=== PATIENT | female | born 1975 | race Caucasian/White ===

== ENCOUNTER 2017-08-13 20:41 | Observation (INO) ==
--- NOTE | 2017-08-13 21:00 | Emergency Department Note ---
Disposition Clinical Impression: Shortness of breath Chest pain Qualifiers: Chest pain type: unspecified Qualified Code(s): R07.9 - Chest pain, unspecified Disposition: Admitted As Inpatient Condition: Good Referrals: NONE,PCP [Primary Care Provider] - Forms: ED Satisfaction Letter Time of Disposition: 21:47 General Adult HPI - General Chief complaint: ED Chest Pain Stated complaint: chest pain Time Seen by Provider: 08/13/17 20:48 Source: patient Limitations: no limitations Nursing Notes Reviewed: Yes Vital Signs Reviewed: Yes - History of Present Illness HPI Narrative: Patient is a 41 old female the present emergency department with chest pain. She states that this is been ongoing and getting worse over the past 3 days. She describes the chest pain as pressure that radiates into her right jaw and the back of her right shoulder. She states that she has had associated shortness of breath, nausea but denies any diaphoresis. She states that she took a full dose aspirin today approximately 4 hours ago. She denies having any cardiac history or any events like this in the past. She states that nothing seems to make it better and it is worse with exertion. She rates her pain as a 3 out of 10. Patient denies ever having any cardiac catheterizations , stress test or echocardiograms done. Pain Scale: 4 - Related Data Home Medications Medication Instructions Recorded Confirmed Aspirin/Acetaminophen/Caffeine 1 each PO Q6H PRN 08/13/17 08/13/17 [Excedrin Migraine Caplet] Lisinopril [Zestril] 20 mg PO DAILY 08/13/17 08/13/17 hydroCHLOROthiazide 12.5 mg PO DAILY 08/13/17 08/13/17 [Hydrochlorothiazide] Allergies Allergy/AdvReac Type Severity Reaction Status Date / Time ibuprofen AdvReac Vomiting Verified 08/13/17 20:42 sumatriptan [From Imitrex] AdvReac Dizziness Verified 08/13/17 20:42 All systems ED: reviewed and negative except as stated. Cardiovascular: Reports: chest pain Respiratory: Reports: dyspnea Gastrointestinal: Reports: nausea Past Medical History - Past Medical History Medical history: Reports: hypertension Psychiatric history: Reports: no psych history - Social History Smoking Status: Current every day smoker Alcohol use: Reports: none Drug use: Reports: none Physical Exam - General Limitations: no limitations General appearance: alert, in no apparent distress - Head Head exam: atraumatic, normocephalic - Eye Eye exam: Present: normal appearance, EOMI - Neck Neck exam: Present: normal inspection, full ROM, trachea midline - Respiratory Respiratory exam: Present: other (Patient has coarse breath sounds bilaterally) - Cardiovascular Cardiovascular exam: Present: regular rate, normal rhythm, normal heart sounds, +S1, +S2 - Abdominal Exam Abdominal exam: Present: soft, Non-Tender, normal bowel sounds - Neurological Exam Neurological exam: Present: alert, oriented X3 - Psychiatric Psychiatric exam: Present: normal affect, normal mood - Skin Skin exam: Present: warm, dry, intact Course Vital Signs Temperature 97.6 F 08/13/17 20:42 Pulse Rate 90 08/13/17 20:42 Respiratory Rate 18 08/13/17 20:42 Blood Pressure 148/93 08/13/17 20:42 O2 Sat by Pulse Oximetry 98 08/13/17 20:42 Temperature 97.6 F 08/13/17 20:42 Pulse Rate 87 08/13/17 21:46 Respiratory Rate 16 08/13/17 21:46 Blood Pressure 115/87 08/13/17 21:46 O2 Sat by Pulse Oximetry 97 08/13/17 21:46 Oxygen Delivery Oxygen Delivery Room Air Medical Decision Making - MDM Narrative Medical decision making narrative: Due the patient presenting with chest pain we will obtain a CBC, BMP, troponin, chest x-ray and EKG to evaluate this patient for possible cardiac or pulmonary cause. Patient had an elevated white count of 18. Troponin was negative. Chest showed no acute cardiopulmonary process. EKG showed a sinus rhythm with no STEMI noted. Remainder of her laboratory testing was unremarkable. But due to the patient having substernal chest pain is radiating into her right shoulder and neck this is concerning for possible cardiac cause so we will admit the patient to the hospital for further evaluation and management. Patient reports that she had relief of her pain with 2 sublingual nitroglycerin. I have called and spoken with the hospitalist and they have accepted the patient to their service. The patient will be admitted to the hospital for further evaluation and management. - Medical Records Medical records reviewed: Yes I reviewed the patient's medical records. - Lab Data Lab results reviewed: Yes I reviewed the patient's lab results. Result diagrams: 08/13/17 21:04 08/13/17 21:04 Lab Results 08/13/17 08/13/1708/13/18 Range/Units 21:04 21:04 21:04 WBC 18.0 H (4.3-11.1) K/mcL RBC 5.22 H (3.82-4.97) M/mcL Hgb 15.4 (11.5-15.4) g/dL Hct 47.0 H (35.3-44.9) % MCV 90.0 (83.0-100.0) fL MCH 29.5 (28.0-33.3) pg MCHC 32.8 (31.6-35.5) g/dL RDW 13.9 (11.5-14.5) % Plt Count 411 H (140-400) K/mcL MPV 9.2 L (9.4-12.4) fL Immature Gran % 0.6 (0-4) % Seg Neutrophils % 58.7 % Lymphocytes % 32.8 % Monocytes % 6.4 % Eosinophils % 1.1 % Basophils % 0.4 % Neutrophils # 10.6 H (1.6-8.9) K/mcL Lymphocytes # 5.9 H (0.6-4.6) K/mcL Monocytes # 1.2 (0.0-1.3) K/mcL Eosinophils # 0.2 (0.0-0.6) K/mcL Basophils # 0.1 (0.0-0.2) K/mcL PT 12.3 H (9.4-12.1) Seconds INR 1.1 APTT 34.6 (26.0-36.0) Seconds Sodium (136-145) mEq/L Potassium (3.5-5.1) mEq/L Chloride (98-107) mEq/L Carbon Dioxide (23-29) mEq/L BUN (6-20) mg/dL Creatinine (0.60-1.20) mg/dL Est GFR ( Amer) (> 60) Est GFR (Non-Af Amer) (> 60) BUN/Creatinine Ratio (6-26) Glucose (70-105) mg/dL Calculated Osmolality (280-300) Calcium (8.6-10.3) mg/dL Troponin I (< 0.04) ng/mL B-Natriuretic Peptide 25 (Less than 100) pg/mL 01/31/18 01/31/18 Range/Units 21:04 21:04 WBC (4.3-11.1) K/mcL RBC (3.82-4.97) M/mcL Hgb (11.5-15.4) g/dL Hct (35.3-44.9) % MCV (83.0-100.0) fL MCH (28.0-33.3) pg MCHC (31.6-35.5) g/dL RDW (11.5-14.5) % Plt Count (140-400) K/mcL MPV (9.4-12.4) fL Immature Gran % (0-4) % Seg Neutrophils % % Lymphocytes % % Monocytes % % Eosinophils % % Basophils % % Neutrophils # (1.6-8.9) K/mcL Lymphocytes # (0.6-4.6) K/mcL Monocytes # (0.0-1.3) K/mcL Eosinophils # (0.0-0.6) K/mcL Basophils # (0.0-0.2) K/mcL PT (9.4-12.1) Seconds INR APTT (26.0-36.0) Seconds Sodium 136 (136-145) mEq/L Potassium 3.5 (3.5-5.1) mEq/L Chloride 104 (98-107) mEq/L Carbon Dioxide 26 (23-29) mEq/L BUN 11 (6-20) mg/dL Creatinine 0.70 (0.60-1.20) mg/dL Est GFR ( Amer) > 60 (> 60) Est GFR (Non-Af Amer) > 60 (> 60) BUN/Creatinine Ratio 16 (6-26) Glucose 114 H (70-105) mg/dL Calculated Osmolality 282 (280-300) Calcium 9.5 (8.6-10.3) mg/dL Troponin I < 0.03 (< 0.04) ng/mL B-Natriuretic Peptide (Less than 100) pg/mL - Radiology Data Radiology results reviewed: Yes I reviewed the patient's radiology results. Chest X-Ray 08/13/17 20:55 IMPRESSION: No acute cardiopulmonary process. D/ / 08/13/2017 21:37:34 Michelle Gresham MD / teetee Interpreting Provider: Michelle Gresham MD - EKG Data EKG #1 EKG attestation: Yes I reviewed and interpreted this EKG. EKG results narrative: Patient's EKG showed a sinus rhythm at a rate of 74 bpm, AL interval of 165, QRS duration of 82, QTC of 385.
--- NOTE | 2017-08-13 21:16 | Emergency Department Note ---
START Narrative - START START: I examined this patient and my medical decision-making was reviewed with the Resident Physician. I agree with the documented findings, disposition and treatment plan as described except to the extent set forth below. 41 year old female presents to the ED with complaints of chest pain with exertional dyspnea and near syncope and diaphoresis with walking. She has multiple risk factors and is a 1ppd smoker. She took aSA full dose at home and we will try to treat her chest pain with nitro. We iwll admit to medicine for CP r/o ACS due to clinical history.
[2017-08-13 21:18] LABS: Basophils # 0.1 K/mcL (0.0-0.2); Basophils % 0.4 %; Eosinophils # 0.2 K/mcL (0.0-0.6); Eosinophils % 1.1 %; Hemoglobin 15.4 g/dL (11.5-15.4); Immature Granulocytes % 0.6 % (0-4); Lymphocytes # 5.9 K/mcL (0.6-4.6); Lymphocytes % 32.8 %; Mean Corpuscular HGB Conc 32.8 g/dL (31.6-35.5); Mean Corpuscular Hemoglobin 29.5 pg (28.0-33.3); Mean Platelet Volume 9.2 fL (9.4-12.4); Monocytes # 1.2 K/mcL (0.0-1.3); Monocytes % 6.4 %; Neutrophils # 10.6 K/mcL (1.6-8.9); Platelet Count 411 K/mcL (140-400); Red Blood Count 5.22 M/mcL (3.82-4.97); Red Cell Distribution Width 13.9 % (11.5-14.5); Segmented Neutrophils % 58.7 %
[2017-08-13 21:21] LABS: INR 1.1; Prothrombin Time 12.3 Seconds (9.4-12.1)
[2017-08-13 21:23] LABS: Activated Partial Thrombo Time 34.6 Seconds (26.0-36.0)
[2017-08-13] MEDS: Nitroglycerin 0.4 MG TAB.SUBL SL PRN ×2 (21:28→21:47)
[2017-08-13 21:35] LABS: BUN/Creatinine Ratio 16 (6-26); Blood Urea Nitrogen 11 mg/dL (6-20); Calcium 9.5 mg/dL (8.6-10.3); Carbon Dioxide 26 mEq/L (23-29); Chloride 104 mEq/L (98-107); Glucose 114 mg/dL (70-105); Osmolality,Calculated 282 (280-300); Potassium 3.5 mEq/L (3.5-5.1); Sodium 136 mEq/L (136-145); eGFR For African Americans > 60 (> 60); eGFR For Non-African Americans > 60 (> 60)
[2017-08-13] MEDS ORDERED: Naloxone 0.4 MG/ML INJ IVP PRN (22:13)
[2017-08-13] MEDS ORDERED: Acetaminophen 325 MG TABLET PO PRN (22:13)
[2017-08-13] MEDS ORDERED: *HR* HYDROcodone/Acet 5/325 mg TABLET PO PRN (22:13)
[2017-08-13] MEDS ORDERED: Acetaminophen/Aspirin/Caffeine TABLET PO PRN (22:27)
--- NOTE | 2017-08-13 22:42 | Internal Med History&Physical ---
<Mauro Tabor - Last Filed: 08/13/17 23:45> Date of Encounter: 08/13/17 Time of Encounter: 22:00 Assessment and Plan (1) Chest pain Current visit: Yes Status: Acute Acute chest pain that began three days ago and presented as pressure and centralized chest with radiation to right jaw and bilateral shoulder blades. Patient denies previous occurrence, previous cardiac history, previous cardiac workup. Initial troponin < 0.03. Ultrasound 2. Echocardiogram ordered. Cardiac diet with nothing by mouth at midnight for scheduled a.m. nuclear pharm stress test. Continuous cardiac telemetry. Supplemental O2 and SPO2 monitoring when necessary. Aspirin now. Lipitor 20 mg by mouth now. SL nitroglycerin PRN. Will consider cardiology consult based on abnormal troponins and/or echocardiogram and stress test results. Pt. discussed w/Dr. Philippe who is in agreement w/plan of care. Pt. is high risk for cardiac event based on current chest pain for three days duration, hx, and risk factors of familial MIs, current HTN, and tobacco abuse. Observation. Qualifiers: Chest pain type: unspecified Qualified Code(s): R07.9 - Chest pain, unspecified (2) Shortness of breath Current visit: Yes Status: Acute Acute SOB and dyspnea accompanying chest pain. Pt. denies SOB during exam. Supplemental O2 with titration and SPO2 monitoring ordered PRN. (3) Unsteadiness on feet Current visit: Yes Status: Acute Acute on chronic unsteadiness w/ambulation. Falls/safety precautions, up with assist, and bathroom privileges w/assist only. PT/OT consults ordered to assess patient's ambulation strength, stability, and safety. Bilateral carotid Dopplers ordered. CT of the head/brain ordered w/o contrast. (4) HTN (hypertension) Current visit: Yes Status: Chronic Hx of chronic HTN. Monitor pt. and VS. Pt. reports she was taking 10 mg. lisinopril for HTN diastolic BP was >100 so she began taking 20 mg daily. Will continue patient's hydrochlorothiazide and lisinopril @ 20 mg unless pt. becomes hypotensive. Qualifiers: Hypertension type: essential hypertension Qualified Code(s): I10 - Essential (primary) hypertension (5) DVT prophylaxis Current visit: Yes Status: Acute Heparin 5,000 units SQ Q8 for DVT prophylaxis. Monitor pt. for signs of bleeding. Internal Medicine - H&P: HPI Chief complaint: Chest pain/SOB Admitted From: Emergency Dept Plans for Post Hospital Care: Home History of present illness: Ms. Khan is a 41 year old female with medical hx of HTN presents from the ED with chief complaint of chest pain that began three days ago and presented as centralized pressure in her chest with radiation to her right jaw and across her shoulder blades. Denies previous occurrence. Pt. also states that two weeks ago she began having dizzy spells with numbness in her right arm and leg that interfered w/her walking. Denies personal cardiac hx or issues, heart caths, echocardiograms, or stress tests but reports familial hx of [place] and CAD in grandparents and uncle. Pt. reports SOB, chest pain, and nausea but denies recent illness, fever, chills, diaphoresis, changes in vision, headache, palpitations, unusual bleeding, abdominal pain, diarrhea, constipation, weakness , fatigue, lightheadedness, pre-syncope, or syncope. Past Med Surg Social Fam HX - Past Medical History Source: patient, old records reviewed, obtained from family Medical history: hypertension Psychiatric history: no psych history - Social History Smoking Status: Current every day smoker Packs per day: 1 PPD Alcohol use: none Drug use: none Current living situation: Home, With Family Activity Level: Independent ambulation, Very active Recent Out of Country Travel Within the Last 8 Weeks: No Exposure or Possible Exposure to Illness During Travel: No - Family History Father History Unknown: Yes Race: Family Member Ethnicity: Non- Mother Race: Family Member Ethnicity: Non- Hx Family Cardiac Disorders: Yes (HTN) Grandmother Race: Family Member Ethnicity: Non- Living Status: Age at : 69 Cause of : [place] Hx Family Cardiac Disorders: Yes ([place], CAD) Grandfather Race: Family Member Ethnicity: Non- Living Status: Age at : 69 Cause of : [place] Hx Family Cardiac Disorders: Yes ([place], CAD) Internal Medicine - H&P: Meds Aspirin/Acetaminophen/Caffeine [Excedrin Migraine Caplet] 1 each PO Q6H PRN [History] Lisinopril [Zestril] 20 mg PO DAILY 08/13/17 [History] hydroCHLOROthiazide [Hydrochlorothiazide] 12.5 mg PO DAILY 08/13/17 [History] 3 Allergy/AdvReac Type Severity Reaction Status Date / Time ibuprofen AdvReac Vomiting Verified 08/13/17 20:42 sumatriptan [From Imitrex] AdvReac Dizziness Verified 08/13/17 20:42 All Systems PM: A 10-system review of systems was performed and is negative for pertinent findings except as documented above in the HPI. - Constitutional Constitutional: no chills, no fever(s), no night sweats - EENT Eyes: no change in vision, no discharge, no pain, no photophobia Ears: no ear discharge, no ear pain, no tinnitus Nose, mouth and throat: no dysphagia, no nasal discharge, no neck pain, no sore throat - Breasts Breasts: as per HPI - Cardiovascular Cardiovascular ROS IM: as per HPI, chest pain, dyspnea, dyspnea on exertion, no diaphoresis, no lightheadedness, no palpitations, no syncope - Respiratory Respiratory: as per HPI, dyspnea, dyspnea on exertion, no cough, no wheezing, no excessive phlegm production - Gastrointestinal Gastrointestinal: no abdominal pain, no diarrhea, no hematemesis, no hematochezia, no melena, no nausea, no vomiting - Genitourinary Genitourinary: no change in urinary stream, no dysuria, no flank pain, no hematuria Menstruation: as per HPI - Musculoskeletal Musculoskeletal ROS IM: no numbness, no tingling - Integumentary Integumentary IM: no rash, no unusual bruising - Neurological Neurological ROS: as per HPI, disequilibrium, numbness (Two weeks ago in RUE and RLE), tingling (Two weeks ago in RUE and RLE), no confusion, no convulsions , no focal weakness, no tremor(s) - Psychiatric Psychiatric: as per HPI - Endocrine Endocrine IM: as per HPI - Hematologic/Lymphatic Hematologic/Lymphatic: no easy bruising - Allergic/Immunologic Allergic/Immunologic: as per HPI - Constitutional Vitals: Temp Pulse Resp BP Pulse Ox 97.6 F 87 18 114/58 97 08/13/17 20:42 08/13/17 21:46 08/13/17 22:13 08/13/17 22:13 08/13/17 21:46 General appearance: Present: cooperative, A&O X 3, morbidly obese, pleasant, no acute distress, answers questions appropriately - Head Head exam: Present: atraumatic, normocephalic - Eye Eye exam: Present: PERRL, conjuntiva pink, sclera anicteric Pupils: Present: PERRL - ENT ENT exam: Present: normal exam - Neck Neck exam general surgery: Present: normal inspection - Respiratory Respiratory exam: Present: CTAB. Absent: accessory muscle use, rales, rhonchi, wheezes - Cardiovascular Cardiovascular exam: Present: irregular rhythm, +S1, +S2. Absent: diastolic murmur, gallop, rubs, systolic murmur - GI/Abdominal GI/Abdominal exam: Present: normal bowel sounds, soft, no peritoneal signs. Absent: distended, tenderness - Rectal Rectal exam: Present: deferred - Additional comments: exam deferred. - Extremities Exam Extremities exam: Present: warm, radial pulses palpable and symmetrical. Absent : calf tenderness, cyanotic, pedal edema - Back Exam Back exam: Present: normal inspection - Neurological Exam Neurological exam: Present: CN II-XII intact, oriented X3, no focal deficits. Absent: pronater drift, facial droop, speech deficit - Psychiatric Psychiatric exam: Present: normal affect, normal mood - Skin Skin exam: Present: dry, intact Internal Med - H&P Results - Labs CBC & Chem 7: 08/13/17 21:04 08/13/17 21:04 - EKG Data EKG shows normal: sinus rhythm - EKG Data Prior EKG available for review: no EKG comments: 08/13/17 23:27 EKG dated 08/13/17 shows sinus rhythm with sinus arrhythmia, inferior myocardial infarction of indeterminate age. - Diagnostic Studies Chest x-ray Additional comments: Impressions Chest X-Ray 08/13/17 20:55 IMPRESSION: No acute cardiopulmonary process. D/ / 08/13/2017 21:37:34 Michelle Gresham MD / teetee Interpreting Provider: Michelle Gresham MD <Nahid Philippe - Last Filed: 08/14/17 00:59> Date of Encounter: 08/14/17 Assessment and Plan (1) TIA (transient ischemic attack) Current visit: Yes Status: Acute Pt report right side numbness which happened about one month ago, resolved by itself, consider TIA. - CT head negative. - Cont cardiac monitoring r/o occult A Fib - Echo and duplex carotid placed. - Cont ASA and atorvastatin for secondary prevention. Qualifiers: Transient cerebral ischemia type: carotid artery syndrome (hemispheric) Qualified Code(s): G45.1 - Carotid artery syndrome (hemispheric) Internal Medicine - H&P: HPI History of present illness: Ms. Khan is a 41 year old female All Systems PM: A 10-system review of systems was performed and is negative for pertinent findings except as documented above in the HPI. - Constitutional Vitals: Temp Pulse Resp BP Pulse Ox 97.9 F 76 16 100/68 97 08/13/17 22:53 08/13/17 22:53 08/13/17 22:53 08/13/17 22:53 08/13/17 22:53 Internal Med - H&P Results - Labs CBC & Chem 7: 08/13/17 21:04 08/13/17 21:04 - Impressions ITS Impressions Head CT 08/13/17 23:44 IMPRESSION: No acute intracranial abnormality. D/ / Vito Reza / Vito Reza Interpreting Provider: Vito Reza - Attending Attestation I have seen and examined the patient independently. I have discussed with [employer] COMPUTER EXAMINER Mr Tabor regarding the management plan, agreed with the documentation except the change I made above regarding TIA.
[2017-08-14] MEDS: Aspirin Enteric Coated 81 MG Tablet PO SCH ×2 (00:01→10:45)
[2017-08-14] MEDS: Nicotine 14 MG PATCH.TD24 TD SCH ×2 (00:01→10:45)
[2017-08-14 03:14] LABS: Basophils # 0.1 K/mcL (0.0-0.2); Basophils % 0.4 %; Eosinophils # 0.2 K/mcL (0.0-0.6); Eosinophils % 1.3 %; Hematocrit 42.3 % (35.3-44.9); Hemoglobin 14.1 g/dL (11.5-15.4); Immature Granulocytes % 0.4 % (0-4); Lymphocytes # 5.2 K/mcL (0.6-4.6); Lymphocytes % 29.2 %; Mean Corpuscular HGB Conc 33.3 g/dL (31.6-35.5); Mean Corpuscular Hemoglobin 29.4 pg (28.0-33.3); Mean Corpuscular Volume 88.1 fL (83.0-100.0); Mean Platelet Volume 9.5 fL (9.4-12.4); Monocytes # 1.3 K/mcL (0.0-1.3); Monocytes % 7.4 %; Platelet Count 368 K/mcL (140-400); Segmented Neutrophils % 61.3 %
[2017-08-14 03:40] LABS: Alanine Aminotransferase 11 Units/L (7-52); Albumin 3.8 g/dL (3.5-5.7); Albumin/Globulin Ratio 1.2 (1.1-2.2); Alkaline Phosphatase 72 Units/L (34-104); Aspartate Amino Transferase 11 Units/L (13-39); BUN/Creatinine Ratio 18 (6-26); Bilirubin,Total 0.5 mg/dL (0.3-1.0); Blood Urea Nitrogen 12 mg/dL (6-20); Calcium 9.2 mg/dL (8.6-10.3); Carbon Dioxide 23 mEq/L (23-29); Chloride 105 mEq/L (98-107); Chol/HDL Ratio 4.2 (0-4.9); Cholesterol 157 mg/dL (< 200); Globulin 3.1 g/dL (2.4-3.5); Glucose 102 mg/dL (70-105); HDL Cholesterol 37 mg/dL (40-59); LDL Cholesterol,Calculated 103 mg/dL (0-99); Magnesium 1.9 mg/dL (1.6-2.6); Osmolality,Calculated 284 (280-300); Potassium 3.9 mEq/L (3.5-5.1); Sodium 137 mEq/L (136-145); Total Protein 6.9 g/dL (6.4-8.9); Triglycerides 84 mg/dL (< 150); eGFR For African Americans > 60 (> 60); eGFR For Non-African Americans > 60 (> 60)
[2017-08-14 03:47] LABS: Hemoglobin A1C 5.2 %
[2017-08-14] MEDS: *HR* Heparin 5,000 UNIT/ML VIAL SQ SCH ×3 (05:29→20:21)
[2017-08-14] MEDS ORDERED: *HR* Enoxaparin 40 MG/0.4 ML SYRINGE SQ SCH (06:00)
[2017-08-14] MEDS ORDERED: Regadenoson 0.4 MG/5 ML SYRINGE IVP ONE (06:48)
[2017-08-14] MEDS: Lisinopril 20 MG TABLET PO SCH (10:44)
[2017-08-14] MEDS: hydroCHLOROthiazide 25 MG TABLET PO SCH (10:44)
--- NOTE | 2017-08-14 13:48 | Internal Med Progress Note ---
Date of Encounter: 08/14/17 Time of Encounter: 10:35 - Assessment and plan (1) Chest pain Current Visit: Yes Status: Acute Assessment and plan: Patient reports 3 day history of chest pain/pressure. It is substernal with radiation to right jaw and bilateral shoulder blades. Patient has no prior history of NH and denies chest pain in the past. Troponins are negative 3. Patient's lipid panel is within normal limits, A1c is 5.2%. Chest x-ray is negative. Echocardiogram showed preserved EF of 60% and no significant valvular dysfunction. Patient is a 2 day stress test Continue telemetry Aspirin and nitroglycerin for chest pain Stress test completed tomorrow Continue aspirin and statin. Qualifiers: Chest pain type: unspecified Qualified Code(s): R07.9 - Chest pain, unspecified (2) DVT prophylaxis Current Visit: Yes Status: Acute Assessment and plan: Heparin subcutaneous daily. (3) Numbness and tingling Current Visit: Yes Status: Chronic Assessment and plan: Chronic. Patient reports years long history of frequent unsteadiness on her feet accompanied by bilateral lower extremity numbness and tingling. Patient states that she has never seen a physician for workup. B12 and folate were added for morning labs. Patient will need to follow primary care and/or neurology for possible EMG and continued workup. (4) Shortness of breath Current Visit: Yes Status: Resolved Assessment and plan: Patient denies shortness of breath. Lungs are clear. She is not requiring supplemental oxygen. Continue to monitor. (5) Unsteadiness on feet Current Visit: Yes Status: Chronic Assessment and plan: Patient reports that she has been unsteady on her feet for years. She denies falling, but states multiple times a year, her legs give out that she catches herself. She also reports associated bilateral lower extremity numbness and tingling. She will need to follow up with primary care and /or neurology for EMG and/or MRI for further testing and evaluation. (6) HTN (hypertension) Current Visit: Yes Status: Chronic Assessment and plan: Blood pressure is well controlled. Patient states that she has episodes of hypertension and feels that her medication is not controlling hypertension adequately. She has one hypertensive reading on arrival to the emergency department last night. All others are within normal limits. We will continue to monitor and adjust medications if needed. Qualifiers: Hypertension type: essential hypertension Qualified Code(s): I10 - Essential (primary) hypertension - Time Spent With Patient less than 15 minutes - Subjective Interval history: Pt was seen at bedside at 1035 after she returned from day 1 of her stress test. She is alert and awake and denies chest pain currently. She denies SOB, n/ v, abd pain, dizziness, or headache. Patient reports lengthy, years long history of unsteadiness on her feet, bilateral lower extremity numbness and tingling. She denies any dizziness or lightheaded with it, she states that she does not actually fall but that her legs give out and she catches himself. She has not followed up for this. She denies any vision changes or headaches. B12 and folate have been ordered for morning and patient will follow up outpatient with primary care and/or neurology for follow-up. - Constitutional Vitals: Temp Pulse Resp BP Pulse Ox 98.1 F 72 16 126/80 96 08/14/17 11:43 08/14/17 11:43 08/14/17 11:43 08/14/17 11:43 08/14/17 11:43 General appearance: Present: cooperative, A&O X 3, morbidly obese, pleasant, no acute distress, answers questions appropriately - Head Head exam: Present: atraumatic, normal inspection, normocephalic - Eye Eye exam: Present: normal appearance, conjuntiva pink, sclera anicteric - Neck Neck exam general surgery: Present: normal inspection, supple, trachea midline. Absent: lymphadenopathy, tenderness - Respiratory Respiratory exam: Present: CTAB, prolonged expiratory phase. Absent: accessory muscle use, chest wall tenderness, rales, rhonchi, wheezes - Cardiovascular Cardiovascular exam: Present: RRR, +S1, +S2. Absent: diastolic murmur, gallop, rubs, systolic murmur - GI/Abdominal GI/Abdominal exam: Present: normal bowel sounds, soft, no peritoneal signs. Absent: distended, hepatomegaly, tenderness - Extremities Exam Extremities exam: Present: normal capillary refill, normal inspection, warm, radial pulses palpable and symmetrical. Absent: calf tenderness, cyanotic, pedal edema, tenderness - Neurological Exam Neurological exam: Present: alert, oriented X3, no focal deficits. Absent: facial droop, speech deficit - Skin Skin exam: Present: dry, intact, normal color, warm. Absent: rash Internal Medicine: Result - Labs CBC & Chem 7: 08/14/17 02:57 08/14/17 02:57 Labs: Short CBC 08/14/17 Range/Units 02:57 WBC 17.9 H (4.3-11.1) K/mcL Hgb 14.1 (11.5-15.4) g/dL Hct 42.3 (35.3-44.9) % Plt Count 368 (140-400) K/mcL Neutrophils # 11.0 H (1.6-8.9) K/mcL BMP 08/14/17 02:57 Sodium 137 Potassium 3.9 Chloride 105 Carbon Dioxide 23 BUN 12 Creatinine 0.65 Glucose 102 Calcium 9.2 Cardiac Enzymes 08/14/17 Range/Units 02:57 Troponin I < 0.03 (< 0.04) ng/mL Liver Function 08/14/17 Range/Units 02:57 Total Bilirubin 0.5 (0.3-1.0) mg/dL AST 11 L (13-39) Units/L ALT 11 (7-52) Units/L Alkaline Phosphatase 72 (34-104) Units/L Albumin 3.8 (3.5-5.7) g/dL - ABG Interpretation ABG results: PT/INR, D-dimer PT 12.3 Seconds (9.4-12.1) H 08/13/17 21:04 - Impressions Impressions Head CT 08/13/17 23:44 IMPRESSION: No acute intracranial abnormality. D/ / Vito Reza / Vito Reza Interpreting Provider: Vito Reza Echocardiogram 08/14/17 22:24 Impressions: LVEF 60%. Normal left ventricular diastolic function. Normal right ventricular structure and function. No significant valvular dysfunction. No pulmonary hypertension. Left Ventricular Wall Motion: Rest Echo Findings All wall segments showed normal motion. Findings: Study Quality * Technically adequate exam. ECG Findings * Normal sinus rhythm. Left Ventricle * LVEF 60%. * Normal LV chamber size, wall thickness and function. * Normal left ventricular diastolic function. Right Ventricle * Normal right ventricular structure and function. Left Atrium * Normal left atrial size. Right Atrium * Normal right atrial size. Mitral Valve * Normal mitral valve structure. * No mitral regurgitation. * No mitral stenosis. Aortic Valve * No aortic regurgitation. * Aortic valve not well visualized. * No aortic stenosis. Tricuspid Valve * Tricuspid valve not well visualized. * No tricuspid regurgitation. Pulmonic Valve * Pulmonic valve is not well visualized. * No pulmonic stenosis. * No pulmonic regurgitation. Pulmonary Artery * Pulmonary artery not well visualized. Aorta * Normally sized aortic root. * Ascending aorta is not optimally visualized. Pericardium * There is no pericardial effusion present. Interatrial Septum * No evidence of PFO by color Doppler. IVC * The IVC is not well evaluated. Consult Discharge Plan - Plan Referrals: NONE,PCP [Primary Care Provider] -
[2017-08-15] MEDS: *HR* Heparin 5,000 UNIT/ML VIAL SQ SCH ×3 (04:13→21:04)
[2017-08-15 06:30] LABS: Basophils # 0.1 K/mcL (0.0-0.2); Basophils % 0.5 %; Eosinophils # 0.3 K/mcL (0.0-0.6); Eosinophils % 1.7 %; Hematocrit 47.1 % (35.3-44.9); Hemoglobin 15.1 g/dL (11.5-15.4); Immature Granulocytes % 0.6 % (0-4); Lymphocytes # 5.1 K/mcL (0.6-4.6); Lymphocytes % 30.6 %; Mean Corpuscular HGB Conc 32.1 g/dL (31.6-35.5); Mean Corpuscular Volume 90.6 fL (83.0-100.0); Mean Platelet Volume 9.6 fL (9.4-12.4); Monocytes # 1.1 K/mcL (0.0-1.3); Monocytes % 6.6 %; Neutrophils # 9.9 K/mcL (1.6-8.9); Platelet Count 379 K/mcL (140-400)
[2017-08-15 06:59] LABS: Alanine Aminotransferase 11 Units/L (7-52); Albumin/Globulin Ratio 1.2 (1.1-2.2); Alkaline Phosphatase 75 Units/L (34-104); Aspartate Amino Transferase 11 Units/L (13-39); BUN/Creatinine Ratio 21 (6-26); Bilirubin,Total 0.7 mg/dL (0.3-1.0); Blood Urea Nitrogen 15 mg/dL (6-20); Calcium 9.5 mg/dL (8.6-10.3); Carbon Dioxide 25 mEq/L (23-29); Chloride 103 mEq/L (98-107); Globulin 3.3 g/dL (2.4-3.5); Glucose 93 mg/dL (70-105); Osmolality,Calculated 283 (280-300); Sodium 136 mEq/L (136-145); Total Protein 7.3 g/dL (6.4-8.9); eGFR For African Americans > 60 (> 60); eGFR For Non-African Americans > 60 (> 60)
[2017-08-15 07:06] LABS: Folate 9.5 ng/mL (3.0-16.0)
[2017-08-15] MEDS: hydroCHLOROthiazide 25 MG TABLET PO SCH (09:02)
[2017-08-15] MEDS: Nicotine 14 MG PATCH.TD24 TD SCH (09:03)
[2017-08-15] MEDS: Lisinopril 20 MG TABLET PO SCH (09:03)
[2017-08-15] MEDS: Aspirin Enteric Coated 81 MG Tablet PO SCH (09:03)
[2017-08-15 10:26] LABS: Bilirubin,Urine Negative (Negative); Blood,Urine Negative (Negative); Clarity,Urine Cloudy (Clear); Color,Urine Yellow (Yellow); Glucose,Urine (UA) Normal (Normal); Ketones,Urine Negative (Negative); Leukocyte Esterase,Urine Negative (Negative); Nitrite,Urine Negative (Negative); Protein,Urine Negative (Neg-Trace); Specific Gravity,Urine 1.016 (1.010-1.025); Urobilinogen,Urine Normal (Normal)
[2017-08-15 10:28] LABS: Bacteria,Urine None Seen per hpf (None-Few); Hyaline Casts,Urine None Seen per lpf (None-Few); RBC,Urine 0-3 per hpf (0-3); Squamous Epithelial Cell,Urine Many per lpf (None-Few); WBC,Urine 0-3 per hpf (0-3)
--- NOTE | 2017-08-15 12:18 | Cardiology Consult Note ---
Date of Encounter: 08/15/17 Time of Encounter: 12:00 Assessment and Plan (1) Abnormal stress test Current Visit: Yes Status: Acute Patient presented with atypical/typical chest pain symptoms. Troponin negative. No acute ECG changes. Risk factors for CAD: obesity, HTN, HLD, and tobacco use. TTE 08/14/17: LVEF 60%, normal wall motion 2day nuclear stress 08/14/17: small, mild apical lateral perfusion defect likely artifact however ischemia cannot be ruled out, gated EF 60% Discussed mgmt options, medical mgmt vs. LHC, patient prefers medical management which is reasonable given low risk findings. Agree with addition of statin and asa. Will add betablocker. Recommend prn NTG tabs upon discharge. Follow-up with [facility] in 4-6 weeks after trial of medical therapy. If continues to have symptoms can consider LHC. (2) Tobacco abuse counseling Current Visit: Yes Status: Acute Smoking cessation encouraged. (3) HTN (hypertension) Current Visit: Yes Status: Chronic Poorly controlled as outpatient. Remains elevated, will add betablocker. Qualifiers: Qualified Code(s): I10 - Essential (primary) hypertension Discussion w patient/family: The assessment and plan as outlined above was discussed with the patient and/or family members who expressed understanding and agreement. All questions were answered. Thank you for involving us in the care of your patient. Please call with any questions. The patient will be discussed and reviewed with Dr. Emeka Brower; changes to be made accordingly. History of Present Illness Consult date: 08/15/17 Requesting physician: Louisa Mak Consult reason: Abnormal stress test Chief complaint: Chest pain History of present illness: Ms. Khan is a 41 year old female with PMHx significant for tobacco use and HTN who presented to the ED with complaints of chest pressure. Pressure has been on and off for the past 2-3 days. Discomfort radiates to left neck, lasts minutes at a time. Pain is not related to exertion or activity. Associated symptoms include poorly controlled BP for the past 2 weeks, pt notices symptoms are worse with elevated BP's. Initial troponin was negative, no acute ST/T wave abnormalities noted per ECG. Cardiology consulted today for abnormal stress test. Past Med Surg Social Fam HX - Past Medical History Attestation: Yes The following information was validated with the patient. Source: patient Medical history: hypertension Psychiatric history: no psych history - Past Surgical History Surgical History: - Social History Smoking Status: Current every day smoker Packs per day: 1 PPD Alcohol use: none Drug use: none - Family History Father History Unknown: Yes Race: Family Member Ethnicity: Non- Mother Race: Family Member Ethnicity: Non- Hx Family Cardiac Disorders: Yes (HTN) Grandmother Race: Family Member Ethnicity: Non- Living Status: Age at : 69 Cause of : [place] Hx Family Cardiac Disorders: Yes ([place], CAD) Grandfather Race: Family Member Ethnicity: Non- Living Status: Age at : 69 Cause of : [place] Hx Family Cardiac Disorders: Yes ([place], CAD) Medications and Allergies Aspirin/Acetaminophen/Caffeine [Excedrin Migraine Caplet] 1 each PO Q6H PRN [History] hydroCHLOROthiazide [Hydrochlorothiazide] 12.5 mg PO DAILY 08/13/17 [History] Aspirin Enteric Coated [Aspirin EC] 81 mg PO DAILY #30 tablet. 08/15/17 [Rx] Atorvastatin [Lipitor] 10 mg PO HS #30 tablet 08/15/17 [Rx] Lisinopril [Zestril] 20 mg PO DAILY #30 tablet 08/15/17 [Rx] Metoprolol [Lopressor] 25 mg PO BID #60 tablet 08/15/17 [Rx] Nicotine Patch [Nicoderm] 14 mg TD DAILY #28 patch.td24 08/15/17 [Rx] 3 Allergy/AdvReac Type Severity Reaction Status Date / Time ibuprofen AdvReac Vomiting Verified 08/13/17 20:42 sumatriptan [From Imitrex] AdvReac Dizziness Verified 08/13/17 20:42 All Systems Review: A 10-system review of systems was performed and is negative for pertinent findings except as documented above in the HPI. - Cardiovascular Cardiovascular: as per HPI Physical Examination Vital Signs, Last 4 Hours Temp Pulse Resp BP Pulse Ox 08/15/17 11:52 99.1 F 94 18 150/96 97 General: Conversant, No Apparent Distress, Other (obese) HEENT: Atraumatic, Normocephaly, Mucus Membranes Moist Neck: No JVD, Normal carotid pulses Cardiac: Reg Rate and Rhythm, Normal S1 and S2, No Murmur Lungs: Normal Breath Sounds, No Wheeze, Rales, Rhonchi Neuro: Alert and responsive, No focal deficits noted Abdomen: Soft, Non-Tender Skin: No rashes noted on visualized skin Musculoskeletal: No Chest Wall Tenderness Extremities: No Clubbing, No Cyanosis, No Edema, Normal Pulses Results 08/15/17 05:35 08/15/17 05:35 Lab Results 08/15/17 08/15/17 05:35 05:35 WBC 16.6 H Hgb 15.1 Hct 47.1 H Plt Count 379 Sodium 136 Potassium 4.0 Chloride 103 Carbon Dioxide 25 BUN 15 Creatinine 0.70 Glucose 93 Calcium 9.5 Total Bilirubin 0.7 AST 11 L ALT 11 Alkaline Phosphatase 75 - Imaging and Cardiology Echo: report reviewed Cardiac cath: report reviewed Other Results: 12 hour tele: avg HR=75 SR. No significant event noted. - EKG Interpretation EKG results cardiology: personally reviewed Consult Discharge Plan - Plan Referrals: NONE,PCP [Primary Care Provider] - Prescriptions: Aspirin Enteric Coated [Aspirin EC] 81 mg PO DAILY #30 tablet. Atorvastatin [Lipitor] 10 mg PO HS #30 tablet Lisinopril [Zestril] 20 mg PO DAILY #30 tablet Metoprolol [Lopressor] 25 mg PO BID #60 tablet Nicotine Patch [Nicoderm] 14 mg TD DAILY #28 patch.td24
--- NOTE | 2017-08-15 12:50 | Discharge Summary ---
Date of Encounter: 08/15/17 Time of Encounter: 09:35 - Discharge Diagnosis (1) Chest pain Priority: Primary Status: Acute Comments: Patient reports 3 day history of chest pain/pressure prior to admission, none today. It is substernal with radiation to right jaw and bilateral shoulder blades. Patient has no prior history of SD and denies chest pain in the past. Troponins are negative 3. Patient's lipid panel is within normal limits, A1c is 5.2%. Chest x-ray is negative. Echocardiogram showed preserved EF of 60% and no significant valvular dysfunction. Stress with a gated EF of 60% with a small sized, mild intensity, reversible apical lateral defect, although it was suspicious for artifact, a small area of ischemia could not be excluded. Patient was evaluated by cardiology. Will follow up in the clinic and optimize medical management. She will continue aspirin, statin, beta ly. Patient continues to deny chest pain. We discussed risk factor modification including heart healthy diet, exercise, smoking cessation. We will send patient home with prescription for nicotine patches. Qualifiers: Chest pain type: unspecified Qualified Code(s): R07.9 - Chest pain, unspecified (2) DVT prophylaxis Priority: Secondary Status: Acute Comments: Heparin subcutaneous 3 times a day. Patient is also ambulatory. (3) Numbness and tingling Priority: Secondary Status: Chronic Comments: Patient reports chronic numbness and tingling to bilateral lower extremities. There is equally distributed. She also states at times this causes her to have lower extremity weakness. Unclear etiology at this time. Patient's A1c is within normal limits, she denies any chronic back pain or injury, no acute injury. She denies loss of bowel or bladder. Nash is within normal limits, B12 is mildly decreased at 193. Will supplement with oral B12 at discharge. Patient will need to follow up with primary care for continued evaluation and possible EMG. (4) Shortness of breath Priority: Secondary Status: Resolved Comments: Resolved. Patient denies any shortness of breath. Her lungs are clear and diminished throughout. No supplemental oxygen as required. She is in no distress. (5) Unsteadiness on feet Priority: Secondary Status: Chronic Comments: Plan as above. (6) HTN (hypertension) Priority: Secondary Status: Chronic Comments: Chronic. Continue home medications. Qualifiers: Hypertension type: essential hypertension Qualified Code(s): I10 - Essential (primary) hypertension - Discharge Medications Prescriptions: Aspirin Enteric Coated [Aspirin EC] 81 mg PO DAILY #30 tablet. Atorvastatin [Lipitor] 10 mg PO HS #30 tablet Lisinopril [Zestril] 20 mg PO DAILY #30 tablet Metoprolol [Lopressor] 25 mg PO BID #60 tablet Nicotine Patch [Nicoderm] 14 mg TD DAILY #28 patch.td24 Home Medications: Aspirin/Acetaminophen/Caffeine [Excedrin Migraine Caplet] 1 each PO Q6H PRN [History] hydroCHLOROthiazide [Hydrochlorothiazide] 12.5 mg PO DAILY 08/13/17 [History] Aspirin Enteric Coated [Aspirin EC] 81 mg PO DAILY #30 tablet. 08/15/17 [Rx] Atorvastatin [Lipitor] 10 mg PO HS #30 tablet 08/15/17 [Rx] Lisinopril [Zestril] 20 mg PO DAILY #30 tablet 08/15/17 [Rx] Metoprolol [Lopressor] 25 mg PO BID #60 tablet 08/15/17 [Rx] Nicotine Patch [Nicoderm] 14 mg TD DAILY #28 patch.td24 08/15/17 [Rx] Allergies/Adverse Reactions: 3 Allergy/AdvReac Type Severity Reaction Status Date / Time ibuprofen AdvReac Vomiting Verified 08/13/17 20:42 sumatriptan [From Imitrex] AdvReac Dizziness Verified 08/13/17 20:42 Procedures/tests Complete & Pending: Procedures Performed prior 72 hours Category Date Time Status CT head/brain wo con [CT] Routine Cat Scan 08/13/17 23:44 Completed NM amira perf SPECT multi [NM] Routine Exams 08/14/17 08:00 Taken EV carotid duplex imaging BI Routine Y 08/14/17 23:22 Completed EV echocardiogram Routine Y 08/14/17 22:24 Completed SP pharm nuclear stress Routine Y 08/14/17 11:00 Completed Date of admission: 08/13/17 21:57 Primary care physician: PCP NONE Consults: 08/13/17 22:23 Consult to Occupational Therapy [CONS] Routine Comment: Evaluate, develop and implement POC Reason for Consult: Patient reports unsteadiness on her feet that is chronic. Please assess patient for ambulation strength, stability, safety, and possible home assistive needs for post-discharge planning. Consult to Wrapper Stemmer Hand [CONS] Routine Reason for SW Consult: Please assess patient for possible home needs for post -discharge planning 08/13/17 22:24 Consult to Physical Therapy [CONS] Routine Comment: Evaluate, develop and implement POC Reason for Consult: Patient reports unsteadiness on her feet that is chronic. Please assess patient for ambulation strength, stability, safety, and possible home assistive needs for post-discharge planning. 08/15/17 11:20 Consult to Cardiology [CONS] Routine Comment: Consulting Provider: [facility] [place] Reason for Consult: Possible area of ischemia on stress. Time Notified: 11:20 Call Completed: Yes Discharging clinician: Louisa Mak Anticipated date of discharge: 08/15/17 - Patient Status Disposition: Home, Self-Care Condition: Good Functional capacity at discharge: independent ambulation Overall status at discharge: patient is back to baseline - Discharge Instructions Follow Up With: NONE,PCP [Primary Care Provider] - Additional Instructions: Please follow up with your PCP in the next 7-10 days for a recheck and to monitor your labs. Take your medications as directed. Resume your normal home medications and activities as tolerated. Try to increase your activity level and eat a heart healthy diet Stop smoking!! Return to the ER as needed for any other problems or concerns, or if your symptoms return or worsen. - Diet and Activity Activity: resume usual activities as tolerated Diet: low fat, low cholesterol, low salt diet Hospital course: Ms. Khan is a 41 year old female with prior medical history of hypertension, TIA, smoking. She was admitted through the emergency department for chest pain. She had a positive stress test that will be medically managed and she will follow up with cardiology in the office. Her echocardiogram showed preserved ejection fraction and no significant valvular dysfunction. Troponins are negative. EKG was normal sinus rhythm without any ST changes. She denied chest pain throughout the visit. Physical exam was unremarkable. Patient and I discussed lifestyle modifications including smoking cessation, exercise, heart healthy diet. Patient is going to be sent home with prescriptions for aspirin, statin, beta ly, nicotine patches. She will also continue her Lipitor at 20 mg. Her vital signs are stable and she is appropriate for discharge. Time spent discussing smoking cessation with patient: 3 to 10 minutes - Time Spent with Patient Total time spent providing and/or coordinating discharge services: Less than 30 minutes - Constitutional Vitals: Temp Pulse Resp BP Pulse Ox 99.1 F 94 18 150/96 97 08/15/17 11:52 08/15/17 11:52 08/15/17 11:52 08/15/17 11:52 08/15/17 11:52 General appearance: Present: cooperative, A&O X 3, pleasant, no acute distress, obese, answers questions appropriately - Head Head exam: Present: atraumatic, normal inspection, normocephalic - Eye Eye exam: Present: normal appearance, conjuntiva pink, sclera anicteric - Neck Neck exam general surgery: Present: supple, trachea midline. Absent: lymphadenopathy, tenderness - Respiratory Respiratory exam: Present: CTAB. Absent: accessory muscle use, chest wall tenderness, rales, respiratory distress, rhonchi, wheezes - Cardiovascular Cardiovascular exam: Present: RRR, +S1, +S2. Absent: diastolic murmur, gallop, rubs, systolic murmur - GI/Abdominal GI/Abdominal exam: Present: normal bowel sounds, soft, no peritoneal signs. Absent: distended, hepatomegaly, tenderness - Extremities Exam Extremities exam: Present: normal capillary refill, normal inspection, warm, radial pulses palpable and symmetrical. Absent: calf tenderness, cyanotic, pedal edema, tenderness - Neurological Exam Neurological exam: Present: alert, oriented X3, no focal deficits, pronater drift. Absent: facial droop, speech deficit - Skin Skin exam: Present: dry, intact, normal color, warm. Absent: rash
--- NOTE | 2017-08-15 13:01 | Electrocardiograph Report ---
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
[2017-08-15] MEDS: 0.9 % Sodium Chloride 1,000 ML IVC SCH (20:01)
[2017-08-16 04:11] LABS: Basophils # 0.1 K/mcL (0.0-0.2); Basophils % 0.5 %; Eosinophils # 0.5 K/mcL (0.0-0.6); Eosinophils % 2.3 %; Hematocrit 46.8 % (35.3-44.9); Hemoglobin 15.2 g/dL (11.5-15.4); Immature Granulocytes % 0.7 % (0-4); Lymphocytes # 6.5 K/mcL (0.6-4.6); Lymphocytes % 31.9 %; Mean Corpuscular HGB Conc 32.5 g/dL (31.6-35.5); Mean Corpuscular Hemoglobin 28.8 pg (28.0-33.3); Mean Corpuscular Volume 88.6 fL (83.0-100.0); Mean Platelet Volume 9.3 fL (9.4-12.4); Monocytes # 1.2 K/mcL (0.0-1.3); Monocytes % 6.1 %; Neutrophils # 11.9 K/mcL (1.6-8.9); Platelet Count 417 K/mcL (140-400); Red Blood Count 5.28 M/mcL (3.82-4.97); Red Cell Distribution Width 13.9 % (11.5-14.5); Segmented Neutrophils % 58.5 %
[2017-08-16 04:38] LABS: Alanine Aminotransferase 11 Units/L (7-52); Albumin 4.1 g/dL (3.5-5.7); Albumin/Globulin Ratio 1.2 (1.1-2.2); Alkaline Phosphatase 74 Units/L (34-104); Aspartate Amino Transferase 12 Units/L (13-39); BUN/Creatinine Ratio 25 (6-26); Bilirubin,Total 0.6 mg/dL (0.3-1.0); Blood Urea Nitrogen 18 mg/dL (6-20); Calcium 9.8 mg/dL (8.6-10.3); Carbon Dioxide 22 mEq/L (23-29); Chloride 103 mEq/L (98-107); Globulin 3.3 g/dL (2.4-3.5); Glucose 96 mg/dL (70-105); Osmolality,Calculated 278 (280-300); Potassium 3.9 mEq/L (3.5-5.1); Sodium 133 mEq/L (136-145); Total Protein 7.4 g/dL (6.4-8.9); eGFR For African Americans > 60 (> 60); eGFR For Non-African Americans > 60 (> 60)
[2017-08-16] MEDS: *HR* Heparin 5,000 UNIT/ML VIAL SQ SCH ×3 (05:49→20:18)
[2017-08-16] MEDS: 0.9 % Sodium Chloride 1,000 ML IVC SCH ×2 (07:46→19:34)
[2017-08-16] MEDS: hydroCHLOROthiazide 25 MG TABLET PO SCH (07:47)
[2017-08-16] MEDS: Nicotine 14 MG PATCH.TD24 TD SCH (07:47)
[2017-08-16] MEDS: Lisinopril 20 MG TABLET PO SCH (07:47)
[2017-08-16] MEDS: Aspirin Enteric Coated 81 MG Tablet PO SCH (07:47)
--- NOTE | 2017-08-16 16:03 | Internal Med Progress Note ---
Date of Encounter: 08/16/17 Time of Encounter: 14:00 - Assessment and plan (1) Chest pain Current Visit: Yes Status: Acute Assessment and plan: Pt denies chest pain. Continue ASA, Lipitor, Lisionpril, and BB. Continue telemetry. Qualifiers: Chest pain type: unspecified Qualified Code(s): R07.9 - Chest pain, unspecified (2) Numbness and tingling Current Visit: Yes Status: Chronic Assessment and plan: Chronic. Patient reports years long history of frequent unsteadiness on her feet accompanied by bilateral lower extremity numbness and tingling. Patient states that she has never seen a physician for workup. B12 slightly decreased, supplements added. Folate WNL. Patient will need to follow primary care and/or neurology for possible EMG and continued workup. (3) Shortness of breath Current Visit: Yes Status: Resolved Assessment and plan: Patient denies shortness of breath. Lungs are clear. She is not requiring supplemental oxygen. Continue to monitor. (4) Unsteadiness on feet Current Visit: Yes Status: Chronic Assessment and plan: Follow up with PCP. (5) HTN (hypertension) Current Visit: Yes Status: Chronic Assessment and plan: Blood pressure is well controlled. We will continue to monitor and adjust medications if needed. Continue home medications. Qualifiers: Hypertension type: essential hypertension Qualified Code(s): I10 - Essential (primary) hypertension (6) Leukocytosis Current Visit: Yes Status: Acute Assessment and plan: Pt with leukocytosis since admission. INcreased overnight. Unknown etiology. Urine negative for infection. Chest xray negative. Lungs are clear throughout. Pt denies fever, chills, cough , rhinorrhea, body aches, or sore throat. Pt is afebrile, no tachycardia, normotensive, no tachypnea. Respiratory Infectious Panel ordered and not collected. Pt has no PCP for follow up and repeat labs, will keep pt and recheck labs in a.m. Consider hematology consultation if elevated tomorrow. Qualifiers: Leukocytosis type: unspecified Qualified Code(s): D72.829 - Elevated white blood cell count, unspecified (7) DVT prophylaxis Current Visit: Yes Status: Acute Assessment and plan: Heparin subcutaneous daily. Pt is ambulatory in the room. - Time Spent With Patient less than 15 minutes - Subjective Interval history: Pt was seen at bedside at 1400. She is alert and awake and denies chest pain currently. She denies SOB, n/v, abd pain, dizziness, or headache. Pt has no fever, no cough, no chills, no urinary s/s, no rhinorrhea or PND, no ear pain or sore throat. Pt does not have a PCP and due to this, I do not want to send her home with increasing leukocytosis without the assurance that she will be seen for follow up labs and work up. Pt agress. Will monitor labs tomorrow. - Constitutional Vitals: Temp Pulse Resp BP Pulse Ox 97.8 F 60 16 104/70 95 08/16/17 12:24 08/16/17 12:24 08/16/17 12:24 08/16/17 12:24 08/16/17 12:24 General appearance: Present: cooperative, A&O X 3, pleasant, no acute distress, obese, answers questions appropriately - Head Head exam: Present: atraumatic, normal inspection, normocephalic - Eye Eye exam: Present: normal appearance, conjuntiva pink, sclera anicteric - Neck Neck exam general surgery: Present: supple, trachea midline. Absent: lymphadenopathy, tenderness - Respiratory Respiratory exam: Present: decreased breath sounds, CTAB. Absent: accessory muscle use, rales, rhonchi, wheezes - Cardiovascular Cardiovascular exam: Present: RRR, +S1, +S2. Absent: diastolic murmur, gallop, rubs, systolic murmur - GI/Abdominal GI/Abdominal exam: Present: hepatomegaly, normal bowel sounds, soft. Absent: distended, tenderness - Extremities Exam Extremities exam: Present: normal capillary refill, normal inspection, warm, radial pulses palpable and symmetrical. Absent: calf tenderness, cyanotic, pedal edema, tenderness - Neurological Exam Neurological exam: Present: alert, oriented X3, no focal deficits. Absent: facial droop, speech deficit - Skin Skin exam: Present: dry, intact, normal color, warm Internal Medicine: Result - Labs CBC & Chem 7: 08/16/17 03:38 08/16/17 03:38 Labs: Short CBC 08/16/17 Range/Units 03:38 WBC 20.4 H (4.3-11.1) K/mcL Hgb 15.2 (11.5-15.4) g/dL Hct 46.8 H (35.3-44.9) % Plt Count 417 H (140-400) K/mcL Neutrophils # 11.9 H (1.6-8.9) K/mcL BMP 08/16/17 03:38 Sodium 133 L Potassium 3.9 Chloride 103 Carbon Dioxide 22 L BUN 18 Creatinine 0.72 Glucose 96 Calcium 9.8 Liver Function 08/16/17 Range/Units 03:38 Total Bilirubin 0.6 (0.3-1.0) mg/dL AST 12 L (13-39) Units/L ALT 11 (7-52) Units/L Alkaline Phosphatase 74 (34-104) Units/L Albumin 4.1 (3.5-5.7) g/dL - ABG Interpretation ABG results: PT/INR, D-dimer PT 12.3 Seconds (9.4-12.1) H 08/13/17 21:04 Consult Discharge Plan - Plan Additional Instructions: Please follow up with your PCP in the next 7-10 days for a recheck and to monitor your labs. Take your medications as directed. Resume your normal home medications and activities as tolerated. Try to increase your activity level and eat a heart healthy diet Stop smoking!! Return to the ER as needed for any other problems or concerns, or if your symptoms return or worsen. Referrals: NONE,PCP [Primary Care Provider] - Prescriptions: Aspirin Enteric Coated [Aspirin EC] 81 mg PO DAILY #30 tablet. Atorvastatin [Lipitor] 10 mg PO HS #30 tablet Lisinopril [Zestril] 20 mg PO DAILY #30 tablet Metoprolol [Lopressor] 25 mg PO BID #60 tablet Nicotine Patch [Nicoderm] 14 mg TD DAILY #28 patch.td24
[2017-08-16] MEDS: Cyanocobalamin (B-12) 1,000 MCG TABLET PO SCH (16:58)
[2017-08-16 18:52] LABS: Adenovirus Not Detected (Not Detect); Bordetella Pertussis Not Detected (Not Detect); Chlamydophila pneumoniae Not Detected (Not Detect); Coronavirus 229E Not Detected (Not Detect); Coronavirus HKU1 Not Detected (Not Detect); Coronavirus NL63 Not Detected (Not Detect); Coronavirus OC43 Not Detected (Not Detect); Human Metapneumovirus Not Detected (Not Detect); Human Rhinovirus/Enterovirus Not Detected (Not Detect); Influenza A Subtype 2009 H1 Not Detected (Not Detect); Influenza A Untypeable Not Detected (Not Detect); Influenza B Not Detected (Not Detect); Mycoplasma pneumoniae Not Detected (Not Detect); Parainfluenza Virus 1 Not Detected (Not Detect); Parainfluenza Virus 2 Not Detected (Not Detect); Parainfluenza Virus 3 Not Detected (Not Detect); Parainfluenza Virus 4 Not Detected (Not Detect); Respiratory Syncytial Virus Not Detected (Not Detect)
[2017-08-17] MEDS: *HR* Heparin 5,000 UNIT/ML VIAL SQ SCH ×3 (05:23→21:42)
[2017-08-17 07:57] LABS: Basophils # 0.1 K/mcL (0.0-0.2); Basophils % 0.5 %; Eosinophils # 0.3 K/mcL (0.0-0.6); Eosinophils % 1.6 %; Hematocrit 43.8 % (35.3-44.9); Hemoglobin 14.7 g/dL (11.5-15.4); Immature Granulocytes % 0.7 % (0-4); Lymphocytes # 5.1 K/mcL (0.6-4.6); Lymphocytes % 29.4 %; Mean Corpuscular HGB Conc 33.6 g/dL (31.6-35.5); Mean Corpuscular Hemoglobin 29.3 pg (28.0-33.3); Mean Corpuscular Volume 87.3 fL (83.0-100.0); Mean Platelet Volume 9.6 fL (9.4-12.4); Monocytes # 1.1 K/mcL (0.0-1.3); Monocytes % 6.3 %; Neutrophils # 10.7 K/mcL (1.6-8.9); Platelet Count 381 K/mcL (140-400); Red Blood Count 5.02 M/mcL (3.82-4.97); Red Cell Distribution Width 13.9 % (11.5-14.5); Segmented Neutrophils % 61.5 %
[2017-08-17] MEDS: hydroCHLOROthiazide 25 MG TABLET PO SCH (08:07)
[2017-08-17] MEDS: 0.9 % Sodium Chloride 1,000 ML IVC SCH ×2 (08:07→21:42)
[2017-08-17] MEDS: Nicotine 14 MG PATCH.TD24 TD SCH (08:07)
[2017-08-17] MEDS: Cyanocobalamin (B-12) 1,000 MCG TABLET PO SCH (08:13)
[2017-08-17] MEDS: Lisinopril 20 MG TABLET PO SCH (08:13)
[2017-08-17] MEDS: Aspirin Enteric Coated 81 MG Tablet PO SCH (08:13)
[2017-08-17 09:11] LABS: BUN/Creatinine Ratio 27 (6-26); Blood Urea Nitrogen 16 mg/dL (6-20); Calcium 9.2 mg/dL (8.6-10.3); Carbon Dioxide 24 mEq/L (23-29); Chloride 102 mEq/L (98-107); Glucose 95 mg/dL (70-105); Osmolality,Calculated 277 (280-300); Sodium 133 mEq/L (136-145); eGFR For African Americans > 60 (> 60); eGFR For Non-African Americans > 60 (> 60)
--- NOTE | 2017-08-17 18:42 | Internal Med Progress Note ---
Date of Encounter: 08/17/17 Time of Encounter: 17:00 - Assessment and plan (1) Chest pain Current Visit: Yes Status: Resolved Assessment and plan: Pt denies chest pain. No SOB, CHAMBERS, dyspnea with rest. Continue ASA, Lipitor, Lisionpril, and BB. Continue telemetry. Qualifiers: Chest pain type: unspecified Qualified Code(s): R07.9 - Chest pain, unspecified (2) Numbness and tingling Current Visit: Yes Status: Chronic Assessment and plan: Chronic. Patient reports years long history of frequent unsteadiness on her feet accompanied by bilateral lower extremity numbness and tingling. Patient states that she has never seen a physician for workup. B12 slightly decreased, supplements added. Folate WNL. Patient will need to follow primary care and/or neurology for possible EMG and full workup. (3) Shortness of breath Current Visit: Yes Status: Resolved Assessment and plan: Patient denies shortness of breath. Lungs are clear. She is not requiring supplemental oxygen. Continue to monitor. Pt nor requiring 02 or nebulizer treatments. (4) Unsteadiness on feet Current Visit: Yes Status: Chronic Assessment and plan: Follow up with PCP. (5) HTN (hypertension) Current Visit: Yes Status: Chronic Assessment and plan: Blood pressure is well controlled. We will continue to monitor and adjust medications if needed. Continue home medications. Qualifiers: Hypertension type: essential hypertension Qualified Code(s): I10 - Essential (primary) hypertension (6) Leukocytosis Current Visit: Yes Status: Acute Assessment and plan: Pt with leukocytosis since admission. Slight decrease overnight. Unknown etiology. Urine negative for infection. Chest xray negative. Lungs are clear throughout. Pt denies fever, chills, cough , rhinorrhea, body aches, or sore throat. Pt is afebrile, no tachycardia, normotensive, no tachypnea. Respiratory Infectious Panel negative. Pt has no PCP for follow up and repeat labs, will keep pt and recheck labs in a.m. Consider hematology consultation if elevated tomorrow. Qualifiers: Leukocytosis type: unspecified Qualified Code(s): D72.829 - Elevated white blood cell count, unspecified (7) DVT prophylaxis Current Visit: Yes Status: Acute Assessment and plan: Heparin subcutaneous daily. Pt is ambulatory in the room. - Time Spent With Patient less than 15 minutes - Subjective Interval history: Pt was seen at bedside at 1700. She is alert and awake and denies chest pain currently. She denies SOB, n/v, abd pain, dizziness, or headache. Pt has no fever, no cough, no chills, no urinary s/s, no URI symptoms. Pt does not have a PCP and due to this, I do not want to send her home with leukocytosis and no follow up. Pt agrees. Will monitor labs again tomorrow. - Constitutional Vitals: Temp Pulse Resp BP Pulse Ox 97.2 F L 64 16 102/61 96 08/17/17 15:06 08/17/17 15:06 08/17/17 15:06 08/17/17 15:06 08/17/17 15:06 General appearance: Present: cooperative, A&O X 3, pleasant, no acute distress, obese, answers questions appropriately - Head Head exam: Present: atraumatic, normal inspection, normocephalic - Eye Eye exam: Present: normal appearance, conjuntiva pink, sclera anicteric - Neck Neck exam general surgery: Present: tenderness, supple, trachea midline. Absent : lymphadenopathy - Respiratory Respiratory exam: Present: CTAB. Absent: accessory muscle use, rales, respiratory distress, rhonchi, wheezes - Cardiovascular Cardiovascular exam: Present: RRR, +S1, +S2. Absent: diastolic murmur, gallop, rubs, systolic murmur - GI/Abdominal GI/Abdominal exam: Present: hepatomegaly, normal bowel sounds, soft, no peritoneal signs. Absent: distended, tenderness - Extremities Exam Extremities exam: Present: normal capillary refill, warm, radial pulses palpable and symmetrical. Absent: calf tenderness, cyanotic, pedal edema, tenderness - Neurological Exam Neurological exam: Present: alert, oriented X3, no focal deficits. Absent: facial droop, speech deficit - Skin Skin exam: Present: dry, intact, normal color, warm. Absent: rash Internal Medicine: Result - Labs CBC & Chem 7: 08/17/17 07:08 08/17/17 08:49 Labs: Short CBC 08/17/17 Range/Units 07:08 WBC 17.4 H (4.3-11.1) K/mcL Hgb 14.7 (11.5-15.4) g/dL Hct 43.8 (35.3-44.9) % Plt Count 381 (140-400) K/mcL Neutrophils # 10.7 H (1.6-8.9) K/mcL BMP 08/17/17 08:49 Sodium 133 L Potassium 4.0 Chloride 102 Carbon Dioxide 24 BUN 16 Creatinine 0.60 Glucose 95 Calcium 9.2 - ABG Interpretation ABG results: PT/INR, D-dimer PT 12.3 Seconds (9.4-12.1) H 08/13/17 21:04 Consult Discharge Plan - Plan Additional Instructions: Please follow up with your PCP in the next 7-10 days for a recheck and to monitor your labs. Take your medications as directed. Resume your normal home medications and activities as tolerated. Try to increase your activity level and eat a heart healthy diet Stop smoking!! Return to the ER as needed for any other problems or concerns, or if your symptoms return or worsen. Referrals: NONE,PCP [Primary Care Provider] - Prescriptions: Aspirin Enteric Coated [Aspirin EC] 81 mg PO DAILY #30 tablet. Atorvastatin [Lipitor] 10 mg PO HS #30 tablet Lisinopril [Zestril] 20 mg PO DAILY #30 tablet Metoprolol [Lopressor] 25 mg PO BID #60 tablet Nicotine Patch [Nicoderm] 14 mg TD DAILY #28 patch.td24
[2017-08-18] MEDS: *HR* Heparin 5,000 UNIT/ML VIAL SQ SCH (05:24)
[2017-08-18 05:48] LABS: Basophils # 0.1 K/mcL (0.0-0.2); Basophils % 0.5 %; Eosinophils # 0.4 K/mcL (0.0-0.6); Eosinophils % 2.1 %; Hematocrit 41.6 % (35.3-44.9); Hemoglobin 13.3 g/dL (11.5-15.4); Immature Granulocytes % 0.7 % (0-4); Lymphocytes # 5.7 K/mcL (0.6-4.6); Lymphocytes % 34.3 %; Mean Corpuscular Hemoglobin 28.9 pg (28.0-33.3); Mean Corpuscular Volume 90.2 fL (83.0-100.0); Mean Platelet Volume 9.6 fL (9.4-12.4); Monocytes # 1.2 K/mcL (0.0-1.3); Monocytes % 7.4 %; Neutrophils # 9.1 K/mcL (1.6-8.9); Platelet Count 380 K/mcL (140-400); Red Blood Count 4.61 M/mcL (3.82-4.97); Red Cell Distribution Width 13.8 % (11.5-14.5)
[2017-08-18 06:33] LABS: BUN/Creatinine Ratio 28 (6-26); Blood Urea Nitrogen 17 mg/dL (6-20); Calcium 8.9 mg/dL (8.6-10.3); Carbon Dioxide 24 mEq/L (23-29); Chloride 105 mEq/L (98-107); Glucose 89 mg/dL (70-105); Osmolality,Calculated 283 (280-300); Sodium 136 mEq/L (136-145); eGFR For African Americans > 60 (> 60); eGFR For Non-African Americans > 60 (> 60)
[2017-08-18] MEDS: Lisinopril 20 MG TABLET PO SCH (08:40)
[2017-08-18] MEDS: Cyanocobalamin (B-12) 1,000 MCG TABLET PO SCH (08:41)
[2017-08-18] MEDS: Nicotine 14 MG PATCH.TD24 TD SCH (08:41)
[2017-08-18] MEDS: hydroCHLOROthiazide 25 MG TABLET PO SCH (08:41)
[2017-08-18] MEDS: Aspirin Enteric Coated 81 MG Tablet PO SCH (08:41)
[2017-08-18 11:52] VITALS: BP 123/75
--- NOTE | 2017-08-18 12:04 | Discharge Summary ---
Date of Encounter: 08/18/17 Time of Encounter: 10:35 - Discharge Diagnosis (1) Chest pain Priority: Primary Status: Resolved Comments: Pt denies chest pain. No SOB, CHAMBERS, dyspnea with rest. Patient reports 3 day history of chest pain/pressure. It is substernal with radiation to right jaw and bilateral shoulder blades. Patient has no prior history of OR and denies chest pain in the past. Troponins are negative 3. Patient's lipid panel is within normal limits, A1c is 5.2%. Chest x-ray is negative. Echocardiogram showed preserved EF of 60% and no significant valvular dysfunction. Stress test with small, mild apical lateral perfusion defect, likely artifact, however, ischemia cannot be ruled out. She was seen by cardiology and started on beta ly. Continue ASA, Lipitor, Lisionpril, and BB. Qualifiers: Chest pain type: unspecified Qualified Code(s): R07.9 - Chest pain, unspecified (2) Numbness and tingling Priority: Secondary Status: Chronic Comments: Chronic. Patient reports years long history of frequent unsteadiness on her feet accompanied by bilateral lower extremity numbness and tingling. Patient states that she has never seen a physician for workup. B12 slightly decreased, supplements added. Folate WNL. Patient will need to follow primary care and/or neurology for possible EMG and full workup. (3) Shortness of breath Priority: Secondary Status: Resolved Comments: Resolved. Patient denies shortness of breath. Lungs are clear. She is not requiring supplemental oxygen. Continue to monitor. Pt nor requiring 02 or nebulizer treatments. (4) Unsteadiness on feet Priority: Secondary Status: Chronic Comments: Plan as above. (5) HTN (hypertension) Priority: Secondary Status: Chronic Comments: Blood pressure is well controlled. We will continue to monitor and adjust medications if needed. She had several episodes of hypotension and we have held HCTZ. Continue home medications. Qualifiers: Hypertension type: essential hypertension Qualified Code(s): I10 - Essential (primary) hypertension (6) Leukocytosis Priority: Secondary Status: Acute Comments: Pt with leukocytosis since admission. Slight decrease overnight. Unknown etiology. Urine negative for infection. Chest xray negative. Lungs are clear throughout. Pt denies fever, chills, cough , rhinorrhea, body aches, or sore throat. Pt is afebrile, no tachycardia, normotensive, no tachypnea. Respiratory Infectious Panel negative. Pt has no PCP for follow up, discussed with oncology [employer] and she will follow up at the cancer center tomorrow at 0900 Dr Sung. Qualifiers: Leukocytosis type: unspecified Qualified Code(s): D72.829 - Elevated white blood cell count, unspecified (7) DVT prophylaxis Priority: Secondary Status: Acute Comments: Heparin SQ daily. She is ambulatory and up to chair. - Discharge Medications Prescriptions: Aspirin Enteric Coated [Aspirin EC] 81 mg PO DAILY #30 tablet. Atorvastatin [Lipitor] 10 mg PO HS #30 tablet Lisinopril [Zestril] 20 mg PO DAILY #30 tablet Metoprolol [Lopressor] 25 mg PO BID #60 tablet Nicotine Patch [Nicoderm] 14 mg TD DAILY #28 patch.td24 Home Medications: Aspirin/Acetaminophen/Caffeine [Excedrin Migraine Caplet] 1 each PO Q6H PRN [History] hydroCHLOROthiazide [Hydrochlorothiazide] 12.5 mg PO DAILY 08/13/17 [History] Aspirin Enteric Coated [Aspirin EC] 81 mg PO DAILY #30 tablet. 08/15/17 [Rx] Atorvastatin [Lipitor] 10 mg PO HS #30 tablet 08/15/17 [Rx] Lisinopril [Zestril] 20 mg PO DAILY #30 tablet 08/15/17 [Rx] Metoprolol [Lopressor] 25 mg PO BID #60 tablet 08/15/17 [Rx] Nicotine Patch [Nicoderm] 14 mg TD DAILY #28 patch.td24 08/15/17 [Rx] Allergies/Adverse Reactions: 3 Allergy/AdvReac Type Severity Reaction Status Date / Time ibuprofen AdvReac Vomiting Verified 08/13/17 20:42 sumatriptan [From Imitrex] AdvReac Dizziness Verified 08/13/17 20:42 Date of admission: 08/13/17 21:57 Primary care physician: PCP NONE Consults: 08/13/17 22:23 Consult to Occupational Therapy [CONS] Routine Comment: Evaluate, develop and implement POC Reason for Consult: Patient reports unsteadiness on her feet that is chronic. Please assess patient for ambulation strength, stability, safety, and possible home assistive needs for post-discharge planning. Consult to Email Administrator [CONS] Routine Reason for SW Consult: Please assess patient for possible home needs for post -discharge planning 08/13/17 22:24 Consult to Physical Therapy [CONS] Routine Comment: Evaluate, develop and implement POC Reason for Consult: Patient reports unsteadiness on her feet that is chronic. Please assess patient for ambulation strength, stability, safety, and possible home assistive needs for post-discharge planning. 08/15/17 11:20 Consult to Cardiology [CONS] Routine Comment: Consulting Provider: Rubi Figueroa Reason for Consult: Possible area of ischemia on stress. Time Notified: 11:20 Call Completed: Yes Discharging clinician: Louisa Mak Anticipated date of discharge: 08/18/17 - Patient Status Disposition: Home, Self-Care Condition: Good Functional capacity at discharge: independent ambulation Overall status at discharge: patient is back to baseline - Discharge Instructions Follow Up With: NONE,PCP [Primary Care Provider] - Additional Instructions: Please follow up with your PCP in the next 7-10 days for a recheck and to monitor your labs. Follow up with Dr. Coleman at 9 a.m at the cancer center tomorrow. Take your medications as directed. HOld your HCTZ Resume your normal home medications and activities as tolerated. Take your new medications as directed. Try to increase your activity level and eat a heart healthy diet Stop smoking!! Return to the ER as needed for any other problems or concerns, or if your symptoms return or worsen. - Diet and Activity Activity: increase activity as tolerated Diet: diabetic diet, low fat, low cholesterol, low salt diet Hospital course: Ms. Khan is a 41 year old female with prior medical history of hypertension, TIA, smoking. She was admitted through the emergency department for chest pain. She had a positive stress test that will be medically managed and she will follow up with cardiology in the office. Her echocardiogram showed preserved ejection fraction and no significant valvular dysfunction. Troponins are negative. EKG was normal sinus rhythm without any ST changes. She denied chest pain throughout the visit. Physical exam was unremarkable. Patient and I discussed lifestyle modifications including smoking cessation, exercise, heart healthy diet. She was started on a BB while she was here and has been tolerating it well. She has had some episodes of hypotension and HCTZ has been stopped. Patient is going to be sent home with prescriptions for aspirin, statin , beta ly, nicotine patches. She will also continue her Lipitor at 20 mg. She has leukocytosis with no obvious source of infection. She has had no acute illness recently. Urine and chest xray negative, RIP negative. She has no URI symptoms, no urinary symptoms. Pt will see Dr. Collins at the cancer center tomorrow for evaluation. Her vital signs are stable and she is appropriate for discharge. - Time Spent with Patient Total time spent providing and/or coordinating discharge services: Less than 30 minutes - Constitutional Vitals: Temp Pulse Resp BP Pulse Ox 98.1 F 62 18 123/75 98 08/18/17 11:51 08/18/17 11:51 08/18/17 11:51 08/18/17 11:51 08/18/17 11:51 General appearance: Present: cooperative, A&O X 3, pleasant, no acute distress, obese, answers questions appropriately - Head Head exam: Present: atraumatic, normal inspection, normocephalic - Eye Eye exam: Present: conjuntiva pink, sclera anicteric - Neck Neck exam general surgery: Present: tenderness, supple, trachea midline. Absent : lymphadenopathy - Respiratory Respiratory exam: Present: CTAB. Absent: accessory muscle use, rales, rhonchi, wheezes - Cardiovascular Cardiovascular exam: Present: RRR, +S1, +S2. Absent: diastolic murmur, gallop, rubs, systolic murmur - GI/Abdominal GI/Abdominal exam: Present: normal bowel sounds, soft, no peritoneal signs. Absent: distended, hepatomegaly, tenderness - Extremities Exam Extremities exam: Present: normal capillary refill, normal inspection, warm, radial pulses palpable and symmetrical. Absent: calf tenderness, cyanotic, pedal edema, tenderness - Neurological Exam Neurological exam: Present: CN II-XII intact, oriented X3, no focal deficits. Absent: altered, facial droop, speech deficit - Skin Skin exam: Present: dry, intact, normal color, warm. Absent: rash
== END 2017-08-18 14:55 | disposition home or self-care (01) ==
LOC: 3BNU 20:41 → EMEROO 20:41 → 3BNU 22:14
PROVIDERS: ADMIT Internal Medicine; ATTEND Hospitalist

== ENCOUNTER 2018-06-29 15:49 | Inpatient (IN) ==
--- NOTE | 2018-06-29 18:06 | Emergency Department Note ---
Disposition Clinical Impression: Skin ulcer of right great toe Qualifiers: Non-pressure ulcer stage: unspecified non-pressure ulcer stage Qualified Code(s): L97.519 - Non-pressure chronic ulcer of other part of right foot with unspecified severity Disposition: Admitted As Inpatient Condition: Fair Time of Disposition: 20:20 General Adult HPI - General Chief complaint: ED Wound/Laceration Stated complaint: Right great toe ulcer Time Seen by Provider: 06/29/18 17:52 Source: patient Mode of arrival: wheelchair Limitations: no limitations Nursing Notes Reviewed: Yes Vital Signs Reviewed: Yes - History of Present Illness HPI Narrative: Patient is a 42-year-old female presenting to the ER from Dr. Moore's office for right great toe ulcer, current daily smoker. Patient has has medical history significant for hypertension. Patient states that she began to have right great toe cellulitis in December or January 2018, which is purposely gotten worse in the past few months significantly worse over the past few days. She was seen in Dr. Quirino bobby's office this afternoon, where wound cultures were obtained, with in office debridement. She was told to go the ER, as she would need to be admitted for further debridement and surgery per Dr. Moore. She states that she has not had any imaging on her right foot for multiple months. She denies any antibiotic use over the past few months. She states that initially she was placed on antibiotic without resolution. Patient denies any recent fevers, chills, nausea or vomiting. She has chronic change in sensation to her toes bilaterally, states that this has not progressed or changed recently. Patient denies history of diabetes. Patient denies chronic wounds in the past. Pain Scale: 4 - Related Data Home Medications Medication Instructions Recorded Confirmed RX: Aspirin/Acetaminophen/Caffeine 1 each PO Q6H PRN 08/13/17 08/19/17 [Excedrin Migraine Caplet] Previous Rx's Medication Instructions Recorded RX: Aspirin Enteric Coated 81 mg PO DAILY #30 tablet. 08/15/17 [Aspirin EC] RX: Atorvastatin [Lipitor] 10 mg PO HS #30 tablet 08/15/17 RX: Lisinopril [Zestril] 20 mg PO DAILY #30 tablet 08/15/17 RX: Metoprolol [Lopressor] 25 mg PO BID #60 tablet 08/15/17 Allergies Allergy/AdvReac Type Severity Reaction Status Date / Time ibuprofen AdvReac Vomiting Verified 08/19/17 09:28 sumatriptan [From Imitrex] AdvReac Dizziness Verified 08/19/17 09:28 All systems ED: reviewed and negative except as stated. Review of Systems: As Per HPI Constitutional: Denies: fever, chills, weakness ENT ED: Denies: congestion Cardiovascular: Denies: chest pain, palpitations, syncope Respiratory: Denies: cough, dyspnea, wheezes, hemoptysis Gastrointestinal: Denies: abdominal pain, nausea, vomiting, diarrhea, constipation, hematemesis Genitourinary: Denies: urgency, dysuria, frequency Musculoskeletal: Denies: back pain Integumentary: Reports: other (Ulcer to the right great toe). Denies: rash Neurological: Denies: headache, weakness, numbness, paresthesias, confusion Psychiatric: Denies: anxiety, depression Endocrine: Denies: fatigue Hematological/Lymphatic: Denies: easy bleeding, easy bruising Past Medical History - Past Medical History Attestation: Yes The following information was validated with the patient. Source: patient Medical history: Reports: hypertension Surgical history: Reports: Psychiatric history: Reports: no psych history - Social History Smoking Status: Current every day smoker Smokeless Tobacco Status: No Alcohol use: Reports: none Drug use: Reports: none Physical Exam - General General appearance: alert, in no apparent distress - Head Head exam: atraumatic, normocephalic, normal inspection - Eye Eye exam: Present: normal appearance, PERRL, EOMI - ENT ENT exam: normal exam, normal oropharynx, mucous membranes moist - Chest Chest inspection: Present: normal inspection, symmetric chest wall rise - Respiratory Respiratory exam: Present: normal lung sounds bilaterally. Absent: respiratory distress, wheezes - Cardiovascular Cardiovascular exam: Present: regular rate, normal rhythm, normal heart sounds - Abdominal Exam Abdominal exam: Present: soft, Non-Tender. Absent: tenderness, distention, guarding, rebound, rigidity - Extremities Exam Extremities exam: Present: normal capillary refill. Absent: pedal edema, joint swelling, calf tenderness - Expanded Lower Extremity Exam Foot/toe exam: Present: other (1 x 1 cm ulceration to the distal lateral right hallux, erythema surrounding the entire hallux with diffuse swelling and warmth, one area of slight crepitus to the anterior aspect, pain and tenderness to palpation, no drainage). Absent: amputation, puncture wound, foreign body Neurovascular/Tendon exam: Present: sensory deficit (no sensation to the distal hallux, bilateral and unchanged). Absent: pulse deficit, motor deficit Course Vital Signs Temperature 98.1 F 06/29/18 15:51 Pulse Rate 72 06/29/18 15:51 Respiratory Rate 16 06/29/18 15:51 Blood Pressure 120/83 06/29/18 15:51 O2 Sat by Pulse Oximetry 96 06/29/18 15:51 Temperature 98.1 F 06/29/18 17:55 Pulse Rate 79 06/29/18 20:36 Respiratory Rate 17 06/29/18 20:36 Blood Pressure 118/76 06/29/18 20:36 O2 Sat by Pulse Oximetry 97 06/29/18 20:36 Oxygen Delivery Oxygen Delivery Room Air Medical Decision Making - MDM Narrative Medical decision making narrative: Patient is a 42-year-old female who is presenting with right great toe ulcer, sent by Dr. Moore, podiatry for admission with plans for further surgical interventions inpatient. On arrival to the emergency department, patient is afebrile, normotensive. On examination, patient has a 1 70 m x 1 cm ulceration on the right lateral distal hallux, no active drainage or purulent drainage is noted, the entire right toe, right foot is swollen and red and tender to palpation. Blood cultures were obtained. Patient was started on vancomycin and Zosyn. Did discuss the patient with Dr. Moore, who recommends x-ray at this point in time. X-ray shows no acute osseous changes, no stated evidence of osteomyelitis, does show soft tissue swelling involving the great toe with suggestion of scattered soft tissue gas. CBC reveals leukocytosis of 17.5 with left shift. BMP is relatively unremarkable. Lactic acid is within normal limits. This point in time, we will admit patient to hospitalist service at 2018 for right great toe ulceration. Per Dr. Moore, wound cultures had been obtained in his office. - Medical Records Medical records reviewed: Yes I reviewed the patient's medical records. - Lab Data Lab results reviewed: Yes I reviewed the patient's lab results. Result diagrams: 06/29/18 19:04 06/29/18 19:04 Lab Results 06/29/18 06/29/18 06/29/18 Range/Units 19:04 19:04 19:04 WBC 17.5 H (4.3-11.1) K/mcL RBC 4.93 (3.82-4.97) M/mcL Hgb 14.1 (11.5-15.4) g/dL Hct 44.3 (35.3-44.9) % MCV 89.9 (83.0-100.0) fL MCH 28.6 (28.0-33.3) pg MCHC 31.8 (31.6-35.5) g/dL RDW 14.0 (11.5-14.5) % Plt Count 367 (140-400) K/mcL MPV 9.3 L (9.4-12.4) fL Immature Gran % 1.3 (0-4) % Seg Neutrophils % 70.1 % Lymphocytes % 20.6 % Monocytes % 6.3 % Eosinophils % 1.4 % Basophils % 0.3 % Neutrophils # 12.3 H (1.6-8.9) K/mcL Lymphocytes # 3.6 (0.6-4.6) K/mcL Monocytes # 1.1 (0.0-1.3) K/mcL Eosinophils # 0.3 (0.0-0.6) K/mcL Basophils # 0.1 (0.0-0.2) K/mcL Sodium 138 (136-145) mEq/L Potassium 3.5 (3.5-5.1) mEq/L Chloride 104 (98-107) mEq/L Carbon Dioxide 25 (23-29) mEq/L BUN 12 (6-20) mg/dL Creatinine 0.62 (0.60-1.20) mg/dL Est GFR ( Amer) > 60 (> 60) Est GFR (Non-Af Amer) > 60 (> 60) BUN/Creatinine Ratio 19 (6-26) Glucose 90 (70-105) mg/dL Calculated Osmolality 285 (280-300) Lactic Acid 0.9 (0.5-2.2) mmol/L Calcium 9.5 (8.6-10.3) mg/dL - Radiology Data Radiology results reviewed: Yes I reviewed the patient's radiology results. Foot X-Ray 06/29/18 18:25 IMPRESSION: No acute osseous abnormality of the right foot. Soft tissue swelling involving the great toe with suggestion of scattered soft tissue gas. No plain film evidence of osteomyelitis. D/ / Toy Hernandez MD / Toy Hernandez MD Interpreting Provider: Toy Hernandez MD Shivani - Shivani Situation: Demographics, MOA Background: Presenting Complaint, Relevant PMH, Meds, & Allergies Assessment: Vital Signs, Course and respsone to treatment, Exam Concerns, Patient/Family Expectation, Pertinant Lab Results S.B.A.RMaggi Report Given to: Dr.Elabor Parrish Repor Time: 20:20 (accepted per Dr. Cruz) Attestation Statement - Attestation Attestation: Resident Attestation: I examined this patient and my medical decision making was reviewed with the Resident Physician. I agree with the documented findings, disposition and treatment plan as described except to the extent set forth below. We independently had [id number] contact with the patient. Patient here for evaluation of right toe ulcer and infection. Has been dealing with this outpatient with podiatry. Referred today from the clinic for admission for the OR. The patient's foot itself has had increased swelling and erythema. Approximate twice the size of the other foot with associated purulent drainage from ulcer to the dorsal aspect of the toe. The patient has had increased temperature between the extremities with warmth to the right leg without specific erythema. IV antibiotics will be given. X-rays and further evaluation for infection ordered.
[2018-06-29] MEDS ORDERED: Vancomycin 1,000 MG in 0.9 % Sodium Chloride 10 ML IVPB ONE (18:29)
[2018-06-29] MEDS ORDERED: Piperacillin/Tazobactam 3.375 GM in 0.9 % Sodium Chloride Mini Bag 100 ML IVPB ONE (18:29)
[2018-06-29 19:28] LABS: Basophils # 0.1 K/mcL (0.0-0.2); Basophils % 0.3 %; Eosinophils # 0.3 K/mcL (0.0-0.6); Eosinophils % 1.4 %; Hematocrit 44.3 % (35.3-44.9); Hemoglobin 14.1 g/dL (11.5-15.4); Immature Granulocytes % 1.3 % (0-4); Lymphocytes # 3.6 K/mcL (0.6-4.6); Lymphocytes % 20.6 %; Mean Corpuscular HGB Conc 31.8 g/dL (31.6-35.5); Mean Corpuscular Hemoglobin 28.6 pg (28.0-33.3); Mean Corpuscular Volume 89.9 fL (83.0-100.0); Mean Platelet Volume 9.3 fL (9.4-12.4); Monocytes # 1.1 K/mcL (0.0-1.3); Monocytes % 6.3 %; Neutrophils # 12.3 K/mcL (1.6-8.9); Platelet Count 367 K/mcL (140-400); Red Blood Count 4.93 M/mcL (3.82-4.97); Segmented Neutrophils % 70.1 %
[2018-06-29 20:47] LABS: BUN/Creatinine Ratio 19 (6-26); Blood Urea Nitrogen 12 mg/dL (6-20); Calcium 9.5 mg/dL (8.6-10.3); Carbon Dioxide 25 mEq/L (23-29); Chloride 104 mEq/L (98-107); Glucose 90 mg/dL (70-105); Osmolality,Calculated 285 (280-300); Potassium 3.5 mEq/L (3.5-5.1); Sodium 138 mEq/L (136-145); eGFR For Non-African Americans > 60 (> 60)
[2018-06-29] MEDS ORDERED: Acetaminophen/Aspirin/Caffeine TABLET PO PRN (20:51)
[2018-06-29] MEDS ORDERED: Naloxone 0.4 MG/ML INJ IVP PRN (20:52)
[2018-06-29] MEDS: 0.9 % Sodium Chloride 1,000 ML IVC SCH (22:03)
[2018-06-29] MEDS: OXYCODONE Oral CONC 10 MG/0.5 ML ORAL.SYG SL PRN (22:04)
--- NOTE | 2018-06-29 22:21 | Internal Med History&Physical ---
Date of Encounter: 06/29/18 Time of Encounter: 22:19 Internal Medicine - H&P: HPI Chief complaint: right foot swelling Admitted From: Home Plans for Post Hospital Care: Home History of present illness: Annemarie Khan is a 42-year-old obese woman with a history of hypertension, hyperlipidemia and tobacco abuse who on stress testing has been seen to have concerns for perfusion defects but refused left heart cath is currently on medical management. He has been following with podiatry since January 2018 after scraping calluses from her right great toe and suffered an injury which has been nonhealing requiring close monitoring. She comes to the ER from outpatient clinic with a complaint of swelling of her right great toe with significant erythema that has been spreading over the dorsum of her foot. She has not been on any antibiotics of recent. He states that the spine started about 4 days ago without any inciting trigger. Foot x-ray reviewed by me shows soft tissue swelling involving the great toe with suggestion of scattered soft tissue gas but no evidence of osteomyelitis. Labs revealed a white count of 17.5 for the rest was grossly unremarkable. She was started on empiric antibiotics and blood cultures obtained. She is now admitted for further care. At this time she has no complaints. Past Med Surg Social Fam HX - Past Medical History Medical history: hypertension Psychiatric history: no psych history - Past Surgical History Surgical History: Additional surgical history: tubes tied - Social History Smoking Status: Current every day smoker Packs per day: 1 Smokeless Tobacco Status: No Alcohol use: none Drug use: none - Family History Father Family Member Ethnicity: Non- Mother Family Member Ethnicity: Non- Hx Family Cardiac Disorders: Yes (HTN) Grandmother Family Member Ethnicity: Non- Living Status: Hx Family Cardiac Disorders: Yes ([place], CAD) Grandfather Family Member Ethnicity: Non- Living Status: Hx Family Cardiac Disorders: Yes ([place], CAD) Internal Medicine - H&P: Meds Aspirin/Acetaminophen/Caffeine [Excedrin Migraine Caplet] 2 tab PO Q6H PRN 08/13/17 [History] Aspirin Enteric Coated [Aspirin EC] 81 mg PO DAILY #30 tablet. 08/15/17 [Rx] Atorvastatin [Lipitor] 10 mg PO HS #30 tablet 08/15/17 [Rx] Metoprolol [Lopressor] 25 mg PO BID #60 tablet 08/15/17 [Rx] Cyanocobalamin (Vitamin B-12) [Vitamin B12] 1,000 mcg PO DAILY 06/29/18 [History] Lisinopril [Zestril] 10 mg PO DAILY 06/29/18 [History] Allergy/AdvReac Type Severity Reaction Status Date / Time ibuprofen AdvReac Vomiting Verified 08/19/17 09:28 sumatriptan [From Imitrex] AdvReac Dizziness Verified 08/19/17 09:28 All Systems PM: A 10-system review of systems was performed and is negative for pertinent findings except as documented above in the HPI. - Constitutional Vitals: Temp Pulse Resp BP Pulse Ox 98.4 F 80 14 106/76 98 06/29/18 21:30 06/29/18 21:30 06/29/18 21:30 06/29/18 21:30 06/29/18 21:30 Exam: Vitals: Reviewed General: Obese laying comfortably in bed in no acute distress Skin: Warm and supple. HEENT: Moist mucous membranes. No conjunctivae pallor. Neck: No lymphadenopathy. No JVD. No carotid bruits. No palpable thyroid. Chest: Normal thoracic expansion. Normal breath sounds. Clear to auscultation. Heart: Normal S1 & S2; rhythmic. No rubs or murmurs. Abdomen: Non-distended, soft and non-tender to palpation. No peritoneal reactio n. Extremities: Right foot with diffuse soft tissue swelling overlying the dorsum and the right great toe with erythema; 3 cm callus noted on the medial aspect of the right great toe that is indurated with a necrotic center without active drainage. Neurological: Awake, alert and oriented to person, place and time. No focal deficits. Psych: Affect appropriate. Internal Med - H&P Results - Labs CBC & Chem 7: 06/29/18 19:04 06/29/18 19:04 Labs: Short CBC 06/29/18 Range/Units 19:04 WBC 17.5 H (4.3-11.1) K/mcL Hgb 14.1 (11.5-15.4) g/dL Hct 44.3 (35.3-44.9) % Plt Count 367 (140-400) K/mcL Neutrophils # 12.3 H (1.6-8.9) K/mcL BMP 12/17/18 19:04 Sodium 138 Potassium 3.5 Chloride 104 Carbon Dioxide 25 BUN 12 Creatinine 0.62 Glucose 90 Calcium 9.5 - Impressions ITS Impressions Foot X-Ray 06/29/18 18:25 IMPRESSION: No acute osseous abnormality of the right foot. Soft tissue swelling involving the great toe with suggestion of scattered soft tissue gas. No plain film evidence of osteomyelitis. D/ / Toy Hernandez MD / Toy Hernandez MD Interpreting Provider: Toy Hernandez MD - Assessment and plan (1) Cellulitis of great toe of right foot Current Visit: Yes Status: Acute Assessment and plan: Patient with significant clinical inflammatory signs as well as leukocytosis. There is concern for extension and progression of this process which could become limb-threatening if not adequately treated. Will continue empiric intravenous abx and fluids. Podiatry consult requested. Will keep NPO PMN for possible surgical intervention in the morning. Tissue samples should be sent for culture. (2) Smoker Current Visit: Yes Status: Acute Assessment and plan: Counseling given and resources made available. (3) HTN (hypertension) Current Visit: Yes Status: Chronic Assessment and plan: Will continue home antihypertensives. Qualifiers: Hypertension type: essential hypertension Qualified Code(s): I10 - Essential (primary) hypertension (4) DVT prophylaxis Current Visit: Yes Status: Acute Assessment and plan: Anti-embolic stockings for now, holding heparin for possible surgery in the morning. - Time Spent With Patient Total time spent is greater than 50% in coordination of care (as documented) at patient's floor/unit and/or counseling patient: Greater than 35 minutes
[2018-06-30] MEDS: Piperacillin/Tazobactam 3.375 GM in 0.9 % Sodium Chloride Mini Bag 100 ML IVPB SCH ×2 (05:31→16:12)
[2018-06-30 07:07] LABS: BUN/Creatinine Ratio 22 (6-26); Blood Urea Nitrogen 13 mg/dL (6-20); Calcium 8.9 mg/dL (8.6-10.3); Carbon Dioxide 20 mEq/L (23-29); Chloride 107 mEq/L (98-107); Glucose 109 mg/dL (70-105); Osmolality,Calculated 285 (280-300); Potassium 3.9 mEq/L (3.5-5.1); Sodium 137 mEq/L (136-145); eGFR For Non-African Americans > 60 (> 60)
[2018-06-30 07:22] LABS: Basophils % 0.3 %; Eosinophils # 0.3 K/mcL (0.0-0.6); Eosinophils % 2.2 %; Hematocrit 40.8 % (35.3-44.9); Hemoglobin 13.2 g/dL (11.5-15.4); Immature Granulocytes % 0.8 % (0-4); Lymphocytes # 4.1 K/mcL (0.6-4.6); Lymphocytes % 28.7 %; Mean Corpuscular HGB Conc 32.4 g/dL (31.6-35.5); Mean Corpuscular Hemoglobin 29.2 pg (28.0-33.3); Mean Corpuscular Volume 90.3 fL (83.0-100.0); Mean Platelet Volume 9.6 fL (9.4-12.4); Monocytes # 1.1 K/mcL (0.0-1.3); Monocytes % 7.8 %; Neutrophils # 8.5 K/mcL (1.6-8.9); Platelet Count 377 K/mcL (140-400); Red Blood Count 4.52 M/mcL (3.82-4.97); Segmented Neutrophils % 60.2 %
[2018-06-30 07:29] LABS: INR 1.1; Prothrombin Time 12.4 Seconds (9.4-12.1)
[2018-06-30 07:31] LABS: Activated Partial Thrombo Time 33.8 Seconds (26.0-36.0)
[2018-06-30] MEDS ORDERED: Lisinopril 20 MG TABLET PO SCH (09:00)
[2018-06-30] MEDS: Cyanocobalamin (B-12) 1,000 MCG TABLET PO SCH (09:04)
[2018-06-30] MEDS: Aspirin Enteric Coated 81 MG Tablet PO SCH (09:04)
[2018-06-30] MEDS: 0.9 % Sodium Chloride 1,000 ML IVC SCH (09:08)
[2018-06-30] MEDS: OXYCODONE Oral CONC 10 MG/0.5 ML ORAL.SYG SL PRN (11:32)
[2018-06-30] MEDS ORDERED: Gadolinium Contrast Agent (WT Based) IV PRN (17:25)
--- NOTE | 2018-06-30 17:33 | Podiatry Consult Note ---
Date of Encounter: 06/30/18 Time of Encounter: 17:26 Assessment and Plan (1) Cellulitis of great toe of right foot Current visit: Yes Status: Acute Assessment: Right hallux with ulceration to medial plantar aspect of foot Hyperkeratosis surrounding ulceration Erythema and edema noted to right hallux. Warm to touch Pain with palpation No fluctuance, no foul odor noted. CFT <3 seconds No pain with calf squeezes Diminshed pulses PT/DP right foot Foot xray negative OM, evidence of gas BC preliminary negative WBC 14.1 today Plan: CRP and ESR ordered ABIs ordered MR of right foot ordered r/o osteo HGB A1C ordered NPO after 8 am tomorrow. Plan for surgery tomorrow afternoon/evening for washout and debridement Patient agreeable. (2) Skin ulcer of right great toe Current visit: Yes Status: Acute Assessment: Ulceration of right great toe to plantar aspect Plan: See above Qualifiers: Non-pressure ulcer stage: unspecified non-pressure ulcer stage Qualified Code(s): L97.519 - Non-pressure chronic ulcer of other part of right foot with unspecified severity (3) Smoker Current visit: Yes Status: Acute Assessment: Plan: Encourage patient to stop smoking. May need to consider nicotine supplements- primary managing History of Present Illness HPI: Ms. Khan is a 42 year old female who is known to the podiatry clinic. She follows with Dr. Moore outpatient for a non healing ulcer of right hallux. States she had previously attempted to cut a callus off herself at home and has since had complications with wound healing. PMH of HTN, HLD, and morbid obesity. Patient reports increasing erythema and edema to right hallux. Denies any chest pain, calf pain, or shortness of breath. Denies any fevers, chills, nausea, vomiting, or diarrhea. Denies chest pain, calf pain, or shortness of breath. Past Med Surg Social Fam HX - Past Medical History Medical history: hypertension Psychiatric history: no psych history - Past Surgical History Surgical History: Additional surgical history: tubes tied - Social History Smoking Status: Current every day smoker Packs per day: 1 Smokeless Tobacco Status: No Alcohol use: none Drug use: none - Family History Father Family Member Ethnicity: Non- Mother Family Member Ethnicity: Non- Hx Family Cardiac Disorders: Yes (HTN) Grandmother Family Member Ethnicity: Non- Living Status: Hx Family Cardiac Disorders: Yes ([place], CAD) Grandfather Family Member Ethnicity: Non- Living Status: Hx Family Cardiac Disorders: Yes ([place], CAD) Medications and Allergies Aspirin/Acetaminophen/Caffeine [Excedrin Migraine Caplet] 2 tab PO Q6H PRN 08/13/17 [History] Aspirin Enteric Coated [Aspirin EC] 81 mg PO DAILY #30 tablet. 08/15/17 [Rx] Atorvastatin [Lipitor] 10 mg PO HS #30 tablet 08/15/17 [Rx] Metoprolol [Lopressor] 25 mg PO BID #60 tablet 08/15/17 [Rx] Cyanocobalamin (Vitamin B-12) [Vitamin B12] 1,000 mcg PO DAILY 06/29/18 [History] Lisinopril [Zestril] 10 mg PO DAILY 06/29/18 [History] Allergy/AdvReac Type Severity Reaction Status Date / Time ibuprofen AdvReac Vomiting Verified 08/19/17 09:28 sumatriptan [From Imitrex] AdvReac Dizziness Verified 08/19/17 09:28 All Systems Reviewed: The remainder of the systems were reviewed and are negative - Constitutional Constitutional: no fever(s) - Cardiovascular Cardiovascular: pedal edema, no chest pain, no dyspnea - Respiratory Respiratory: no cough, no dyspnea - Musculoskeletal Musculoskeletal: numbness, tingling Physical Exam - Constitutional Vitals: Temp Pulse Resp BP Pulse Ox 97.5 F L 65 14 107/71 97 06/30/18 16:16 06/30/18 16:16 06/30/18 16:16 06/30/18 16:16 06/30/18 16:16 Exam: Constitiutional: Alert and oriented x 3. Vascular: diminished DP/PT RLE, CFT <3 sec to all digits RLE, normal plantar r esponse, Normal position sense dorsiflexion/plantar flexion, no pain with calf squeeze Dermatologic: Right hallux with ulceration to medial plantar aspect of foot, Hyperkeratosis surrounding ulceration, Erythema and edema noted to right hallux. Warm to touch Musculoskeletal: 5/5 muscle strength and normal tone bilaterally. Results - Labs Result Diagrams: 06/30/18 06:35 06/30/18 06:35 Labs: Abnormal lab results WBC 14.1 K/mcL (4.3-11.1) H 06/30/18 06:35 PT 12.4 Seconds (9.4-12.1) H 06/30/18 06:35 Carbon Dioxide 20 mEq/L (23-29) L 06/30/18 06:35 Glucose 109 mg/dL (70-105) H 06/30/18 06:35 H & H 06/29/18 06/30/18 Range/Units 19:04 06:35 Hgb 14.1 13.2 (11.5-15.4) g/dL Hct 44.3 40.8 (35.3-44.9) % All other labs normal. - Diagnostic results Ankle/Foot x-ray: report reviewed Consult Discharge Plan - Plan Referrals: Savanah Gutierrez CNP [Primary Care Provider] - 07/10/18 1:00 pm
--- NOTE | 2018-06-30 18:21 | Anesthesia Evaluation PreOp ---
Date of Encounter: 06/30/18 Time of Encounter: 18:19 - Past History Planned Operation: Right I&D #1 toe Cardiac History: HTN, Hyperlipidemia Pulmonary History: Smoker, Snore (lightly) DISTILLER History: Denies Any Significant HX Other Medical History: Other (BMI 43) Anesthesia History: No Prior Anesthetic Complications, Past Anesthesia (C-s, tubal) Alcohol Use: none Drug use: none Medications and Allergies Aspirin/Acetaminophen/Caffeine [Excedrin Migraine Caplet] 2 tab PO Q6H PRN [History] Aspirin Enteric Coated [Aspirin EC] 81 mg PO DAILY #30 tablet. 08/15/17 [Rx] Atorvastatin [Lipitor] 10 mg PO HS #30 tablet 08/15/17 [Rx] Metoprolol [Lopressor] 25 mg PO BID #60 tablet 08/15/17 [Rx] Cyanocobalamin (Vitamin B-12) [Vitamin B12] 1,000 mcg PO DAILY 06/29/18 [History] Lisinopril [Zestril] 10 mg PO DAILY 06/29/18 [History] Allergy/AdvReac Type Severity Reaction Status Date / Time ibuprofen AdvReac Vomiting Verified 08/19/17 09:28 sumatriptan [From Imitrex] AdvReac Dizziness Verified 08/19/17 09:28 - Meds/Allergy Pre-op Review Medications Reviewed: Yes Allergies Reviewed: Yes Beta Blockers on Current Med List: Yes (metoprolol) If Beta Blockers taken, Date/Time (Last Dose taken): 06-30-18 metoprolol 9:04 am Anesthesia Results - Labs 06/30/18 06:35 06/30/18 06:35 - Imaging EKG: report reviewed, image reviewed (SINUS RHYTHM WITH SINUS ARRHYTHMIA INFERIOR MYOCARDIAL INFARCTION, OF INDETERMINATE AGE) Additional studies: TTE: Impressions: LVEF 60%. Normal left ventricular diastolic function. Normal right ventricular structure and function. No significant valvular dysfunction. No pulmonary hypertension. Anesthesia Exam Last Vital Signs Temp 97.5 F L 06/30/18 16:16 Pulse 65 06/30/18 16:16 Resp 14 06/30/18 16:16 BP 107/71 06/30/18 16:16 Pulse Ox 97 06/30/18 16:16 Weight: 141 kg NPO (# of Hours): > 8 hrs - HEENT Pupil (Motor): Pupils equal, EOMI Mallampati: III Teeth: Missing Denture Type: Upper: Partial Oral Opening: Greater than 3 - DISTILLER LOC: Oriented - Cardiac Rhythm: Regular Murmur: None - Pulmonary Breath Sounds: bilateral Clear Respiratory Effort: Symmetrical Anesthesia Assess/Plan ASA Score: 3 Level of consciousness: Cooperative Anesthetic Plan: MAC Monitoring Plan: Standard Monitors Recovery Plan: PACU
[2018-06-30 21:25] LABS: Estimated Average Glucose 123 mg/dl; Hemoglobin A1C 5.9 %
--- NOTE | 2018-07-01 00:08 | Internal Med Progress Note ---
Hospitalist Progress Note - Encounter Date of Encounter: 06/30/18 Time of Encounter: 19:00 - Subjective Interval History: SUBJECTIVE: The patient is admitted to the hospital for surgical treatment of cellulitis of right great toe. She does not complain of any significant pain in that area. Denies chest pain and difficulty breathing. Denies coughing and wheezing. OBJECTIVE: Skin: Free of rash and discoloration. There is a surgical dressing applied to right foot. See notes from podiatry. ENMT: Oral/pharyngeal mucosa is normal in appearance. Eyes: Sclera is white. There is no discharge from eyes. Respiratory: Normal breath sounds; no crackles or wheezes. CV: Heart is regular; no gallop or murmur. GI: Abdomen is soft and not tender. There is no palpable mass or visceromegaly. Neuro: There is no focal deficits. ADDITIONAL DATA: CBC shows hemoglobin of 13.2 with a WBC of 14.1 thousand. She had WBC of 17.5 thousand at admission. BMP is normal. ASSESSMENT AND PLAN: Cellulitis of great toe of her right foot. See notes from podiatry. The patient is on IV vancomycin/IV Zosyn. She will get washout and debridement tomorrow. Hypertension. Under control. To continue lisinopril. Hyperlipidemia. To continue Lipitor. - Exam Vitals: Temp Pulse Resp BP Pulse Ox 98.3 F 59 14 91/65 97 06/30/18 23:07 06/30/18 23:07 06/30/18 23:07 06/30/18 23:07 06/30/18 23:07 Exam: xx - Assessment and Plan (1) Cellulitis of great toe of right foot Current Visit: Yes Status: Acute (2) HTN (hypertension) Current Visit: Yes Status: Chronic (3) HLD (hyperlipidemia) Current Visit: Yes Status: Acute - Time Spent with Patient Total time spent is greater than 50% in coordination of care (as documented) at patient's floor/unit and/or counseling patient: Internal Medicine: Result - Labs CBC & Chem 7: 06/30/18 06:35 06/30/18 06:35 Labs: Short CBC 06/30/18 Range/Units 06:35 WBC 14.1 H (4.3-11.1) K/mcL Hgb 13.2 (11.5-15.4) g/dL Hct 40.8 (35.3-44.9) % Plt Count 377 (140-400) K/mcL Neutrophils # 8.5 (1.6-8.9) K/mcL BMP 06/30/18 06:35 Sodium 137 Potassium 3.9 Chloride 107 Carbon Dioxide 20 L BUN 13 Creatinine 0.60 Glucose 109 H Calcium 8.9 - ABG Interpretation ABG results: PT/INR, D-dimer PT 12.4 Seconds (9.4-12.1) H 06/30/18 06:35 - Impressions Impressions Foot MRI 06/30/18 17:25 IMPRESSION: 1. Findings likely to represent noninfectious reactive osteitis of the 1st proximal and distal phalanges. Early osteomyelitis is considered less likely. 2. Shallow soft tissue ulceration plantar and medial to the 1st distal phalanx. Small 7 x 4 x 5 mm peripherally enhancing fluid collection in the soft tissues medial to the 1st proximal phalanx suspicious for an abscess. 3. Circumferential 1st digit and dorsal forefoot subcutaneous edema compatible with cellulitis. 4. Mild flexor hallucis longus tenosynovitis. 5. Moderate fatty atrophy and edema of the intrinsic musculature of the forefoot compatible with diabetic myopathy versus denervation versus myositis. D/ / Dima Zhou MD / Dima Zhou MD Interpreting Provider: Dima Zhou MD Consult Discharge Plan - Plan Referrals: Savanah Gutierrez CNP [Primary Care Provider] - 07/10/18 1:00 pm (2) HTN (hypertension) Qualifiers: Hypertension type: essential hypertension Qualified Code(s): I10 - Essential (primary) hypertension (3) HLD (hyperlipidemia) Qualifiers: Hyperlipidemia type: unspecified Qualified Code(s): E78.5 - Hyperlipidemia, unspecified
[2018-07-01] MEDS: Piperacillin/Tazobactam 3.375 GM in 0.9 % Sodium Chloride Mini Bag 100 ML IVPB SCH ×2 (00:48→08:51)
[2018-07-01] MEDS: Aspirin Enteric Coated 81 MG Tablet PO SCH (08:52)
[2018-07-01] MEDS: Cyanocobalamin (B-12) 1,000 MCG TABLET PO SCH (08:52)
--- NOTE | 2018-07-01 15:01 | Podiatry Consult Note ---
Date of Encounter: 07/01/18 Time of Encounter: 14:57 Assessment and Plan (1) Abscess of toe of right foot Current visit: Yes Status: Acute Assessment: #1: Abscess with infection and cellulitis of the right great toe #2: Comorbidities as outlined in history #3: Cultures pending Plan: #1 admit for intravenous antibiotics pending outcome of sensitivities and cultures #2: Will likely need formal incision and drainage #3: Discussed the need for incision and drainage with patient in detail. Risks versus benefits as well as alternatives to surgical intervention were discussed with the patient in detail. Risks include but are not limited to loss of toe toes foot leg or life DVT blood clots before the surgery and failure procedure produce desired results. Patient ample opportunity ask questions about planned procedure. Those questions are answered to her satisfaction. She will be admitted to [facility] for intravenous antibiotics and likely incision and drainage. Patient voices comprehension agrees to plan of care. Refer to ED for admission. History of Present Illness Chief complaint: Infection wound right great toe HPI: Ms. Khan is a 42 year old female, was first seen by me in February 12 of this year stating that she attempted to remove a callus on her own by sharply cutting it off. She ended up with the infected wound was seen by her primary care provider was given oral antibiotics and eventually was seen by me subsequently. 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 She stated February 12 all the redness is gone away. At that time the wound measured 1 cm long 0.5 cm wide 0.3 cm deep with 90% granulation tissue 10% fibrin post debridement. The patient was then instructed to take care of the wo und itself by daily cleansing with soap and water and dry sterile dressings and then to be followed up accordingly. She was then seen approximately 11 days later where the wound itself had actually increased in width but decreased in length. There is no purulence at that time no necrosis or any evidence of infection. She is instructed to continue to cleanse the wound with soap and water apply Betadine dry bandage. She was then seen 4 weeks later where the wound had stabilized and decrease in overall dimensions at that time was 1 cm in length 0.4 cm in width 0.3 cm in depth again without clinical evidence of infection. The patient states she had daily use Betadine at that time she continue to wear flip-flops and sandals without regard to pressure generated. This was discussed at length. At that time she did exhibit some loss of protective sensation as she had no complaints of pain on ambulation or palpation of the right great toe. She was then most recently seen within the last 48 hours with aggressive infection she stated that begun 4 days prior to presentation. She was then admitted for intravenous antibiotics cultures taken immediately upon arrival to clinic. She presently had stated that on arrival she had experienced chills and fever intermittently for the previous 4 days. She is now admitted for intravenous antibiotics and likely incision and drainage. Past Med Surg Social Fam HX - Past Medical History Medical history: hypertension Psychiatric history: no psych history - Past Surgical History Surgical History: Additional surgical history: tubes tied - Social History Smoking Status: Current every day smoker Packs per day: 1 Smokeless Tobacco Status: No Alcohol use: none Drug use: none - Family History Father Family Member Ethnicity: Non- Mother Family Member Ethnicity: Non- Hx Family Cardiac Disorders: Yes (HTN) Grandmother Family Member Ethnicity: Non- Living Status: Hx Family Cardiac Disorders: Yes (OR, CAD) Grandfather Family Member Ethnicity: Non- Living Status: Hx Family Cardiac Disorders: Yes (OR, CAD) Medications and Allergies Aspirin/Acetaminophen/Caffeine [Excedrin Migraine Caplet] 2 tab PO Q6H PRN 08/13/17 [History] Aspirin Enteric Coated [Aspirin EC] 81 mg PO DAILY #30 tablet. 08/15/17 [Rx] Atorvastatin [Lipitor] 10 mg PO HS #30 tablet 08/15/17 [Rx] Metoprolol [Lopressor] 25 mg PO BID #60 tablet 08/15/17 [Rx] Cyanocobalamin (Vitamin B-12) [Vitamin B12] 1,000 mcg PO DAILY 06/29/18 [History] Lisinopril [Zestril] 10 mg PO DAILY 06/29/18 [History] Allergy/AdvReac Type Severity Reaction Status Date / Time ibuprofen AdvReac Vomiting Verified 08/19/17 09:28 sumatriptan [From Imitrex] AdvReac Dizziness Verified 08/19/17 09:28 All Systems Reviewed: The remainder of the systems were reviewed and are negative. No chest pain nausea vomiting. Intermittent fever and chills prior to presenting. No bowel or bladder dysfunction. Patient did have clinical evidence of decreased epicritic and protective sensation of both feet. Physical Exam - Constitutional Vitals: Temp Pulse Resp BP Pulse Ox 97.9 F 54 19 106/67 97 07/01/18 12:05 07/01/18 12:05 07/01/18 12:05 07/01/18 12:05 07/01/18 12:05 General appearance: obese - Head Head exam: Present: normal inspection - Expanded Lower Extremities Exam Foot/Toe exam: Present: erythema, swelling Neuro vascular tendon exam: Present: abnormal 2-point discrimination, sensory deficit Gait: Present: antalgic - Neurological Exam Neurological exam: Present: oriented X3 - Psychiatric Psychiatric exam: Present: normal affect - Skin Additional comments: Ulceration right great toe with abscess and sinus tract on the medial aspect of the great toe at the level interphalangeal joint. Right great toes globally edematous and erythematous spreading to the first MTPJ. Seropurulent drainage noted at the time of inspection in clinic cultures taken. Wound then thoroughly irrigated with saline and peroxide dressings applied at that time. - Vascular Capillary Refill: less than 3 seconds Results - Labs Result Diagrams: 06/30/18 06:35 06/30/18 06:35 Labs: Abnormal lab results WBC 14.1 K/mcL (4.3-11.1) H 06/30/18 06:35 ESR 64 mm/hr (0-15) H 06/30/18 19:41 PT 12.4 Seconds (9.4-12.1) H 06/30/18 06:35 Carbon Dioxide 20 mEq/L (23-29) L 06/30/18 06:35 Glucose 109 mg/dL (70-105) H 06/30/18 06:35 Hemoglobin A1c 5.9 % (-5.6) H 06/30/18 19:41 C-Reactive Protein 43 mg/L (Less than 10) H 06/30/18 19:41 All other labs normal. - Diagnostic results Ankle/Foot x-ray: image reviewed Consult Discharge Plan - Plan Referrals: Savanah Gutierrez, MONIKA [Primary Care Provider] - 07/10/18 1:00 pm
[2018-07-01] MEDS ORDERED: Bupivacaine/Clonidine Syringe 1 EACH SYRINGE ONE (15:06)
[2018-07-01] MEDS ORDERED: Propofol 500 MG/50 ML INFUS..BTL ONE (15:49)
[2018-07-01] MEDS ORDERED: *HR* FentaNYL (PF) 100 MCG/2 ML VIAL ONE (15:50)
[2018-07-01] MEDS ORDERED: Lidocaine -MPF 2% 2 ML VIAL ONE (15:50)
[2018-07-01] MEDS ORDERED: *HR* Midazolam HCl 2 MG/2 ML VIAL ONE (15:50)
--- NOTE | 2018-07-01 17:10 | Orthopedic Operative Note ---
Date of procedure: 07/01/18 Pre-op diagnosis: #1: Abscess and ulceration plantar medial right great toe Post-op diagnosis: same Procedure: 07/01/18 17:05 #1: Incision and drainage below the fascia right great toe 07/06/18 09:59 Implants: None Complications: None Anesthesia: MAC, local Local Anesthetics: 0.25% Sensorcaine HCL SubQ (cc) Surgeon: Emeka Moore Was there an research lab assistant present: No Estimated blood loss (cc): 5 Tourniquet Time (Minutes): 0 Specimen: Culture swab aerobic and anaerobic great toe Condition: stable Disposition: floor Procedure in Detail: 07/01/18 17:06 Details in summary of procedure. Patient was brought to the surgical suite. A sign in procedure was performed. Patient was then transferred the surgical table positioned properly safely securely. Right foot elevated on foam block. No tourniquet used. Anesthetic timeout taken. Right foot was then prepped with alcohol 3 times. A modified nail block was carried out with Marcaine with clonidine no epinephrine. No complications profound anesthesia achieved. Right foot prepped and draped usual sterile manner. Anesthetic timeout taken. Inspection of the wound revealed opening Honey plantar aspect the medial first IP joint of the right great toe with a phlegmon on the dorsal medial aspect. Using a straight [place] hemostat a tunnel was identified by placing hemostats plantarly to dorsally exiting the dorsal wound. The incision was then made a linear fashion following sinus tract opening the wound up completely down to the deep fascia. No active purulent drainage or pockets of loculated abscesses were noted. The wound was then debrided accordingly with an ultrasonic Misonix debrider after cultures were taken aerobic and anaerobic. The wound was noted to bleed freely without sustaining use of Bovie ligature. The wounds and thoroughly inspected debrided again with a pickup and curved iris scissor. The wound was then irrigated with saline and re-debrided with ultrasonics Misonix debrider. The wound debridement was performed by excisional methods down to the deep fascial layer. No periosteum was noted or visualized. Satisfied we have a clean wound with all nonviable tissue properly debrided the wound was then loosely closed with 3-0 Prolene. The proximal phlegmon was properly debrided was left open to allow for adequate drainage. The most distal portion of the wound was excised in a V fashion correcting the dogear. After closure the wound was inspected no active bleeding was noted hemostasis was achieved. Wound was then dressed with sterile Adaptic 4 x 4's Kerlix a mild compressive dressing. Estimated blood loss less than 5 mL, case encountered none patient was sent to holding room in good condition with vital signs stable.
[2018-07-01] MEDS ORDERED: Naloxone 0.4 MG/ML INJ IVP PRN (17:13)
[2018-07-01] MEDS ORDERED: Acetaminophen/Aspirin/Caffeine TABLET PO PRN (17:13)
[2018-07-01] MEDS ORDERED: Gadolinium Contrast Agent (WT Based) IV PRN (17:13)
--- NOTE | 2018-07-01 17:28 | Anesthesia Evaluation Post Op ---
Date of Encounter: 07/01/18 Time of Encounter: 17:27 - Vital Signs Vital Signs: Vital Signs/O2 Sat/Glucose, Most Recent Temp Pulse Resp BP Pulse Ox 98.2 F 65 18 115/72 97 07/01/18 14:56 07/01/18 14:56 07/01/18 14:56 07/01/18 14:56 07/01/18 14:56 - Lungs Lungs: Clear Ascult./Percussion - Airway Airway: Non-obstructed - Cardiovascular Regular Rate, Baseline Rhythm - Mental Status Mental Status: Alert & Oriented, Answers Appropriately - Pain Pain Scale: 0 Pain Scale used: Numeric (1 - 10) - Nausea Vomiting Nausea Vomiting: Not Present - Hydration Hydration: NPO Notes: 07/01/18 17:28 naac - Discharge PostOp Status: Transfer Patient to floor
--- NOTE | 2018-07-01 22:33 | Internal Med Progress Note ---
Hospitalist Progress Note - Encounter Date of Encounter: 07/01/18 Time of Encounter: 19:00 - Subjective Interval History: SUBJECTIVE: I set the patient after the surgery. She got incision and drainage to fascia of right great toe. Cultures were obtained. She has only mild pain in the area of right foot. Denies chest pain. Denies difficulty breathing. Denies chest pain and difficulty breathing. Denies coughing and wheezing. OBJECTIVE: Skin: Free of rash and discoloration. There is a surgical dressing applied to right foot. See notes from podiatry. ENMT: Oral/pharyngeal mucosa is normal in appearance. Eyes: Sclera is white. There is no discharge from eyes. Respiratory: Normal breath sounds; no crackles or wheezes. CV: Heart is regular; no gallop or murmur. GI: Abdomen is soft and not tender. There is no palpable mass or visceromegaly. Neuro: There is no focal deficits. ADDITIONAL DATA (from yesterday): CBC shows hemoglobin of 13.2 with a WBC of 14.1 thousand. She had WBC of 17.5 thousand at admission. BMP is normal. ASSESSMENT AND PLAN: Cellulitis of great toe of her right foot. See notes from podiatry. The patient is on IV vancomycin/IV Zosyn. She got incision and drainage to the fascia of the right great toe today. Hypertension. Under control. To continue lisinopril. Hyperlipidemia. To continue Lipitor. - Exam Vitals: Temp Pulse Resp BP Pulse Ox 98.7 F 62 16 124/76 97 07/01/18 19:44 07/01/18 19:44 07/01/18 19:44 07/01/18 19:44 07/01/18 19:44 Exam: xx - Assessment and Plan (1) Cellulitis of great toe of right foot Current Visit: Yes Status: Acute (2) HTN (hypertension) Current Visit: Yes Status: Chronic (3) HLD (hyperlipidemia) Current Visit: Yes Status: Acute - Time Spent with Patient Total time spent is greater than 50% in coordination of care (as documented) at patient's floor/unit and/or counseling patient: 25 - 35 minutes Plan of Care Discussed with: patient Internal Medicine: Result - Labs CBC & Chem 7: 06/30/18 06:35 06/30/18 06:35 - ABG Interpretation ABG results: PT/INR, D-dimer PT 12.4 Seconds (9.4-12.1) H 06/30/18 06:35 - VTE Documentation of Mechanical Device: Graduated compression elastic hosiery Consult Discharge Plan - Plan Referrals: Savanah Gutierrez CNP [Primary Care Provider] - 07/10/18 1:00 pm (2) HTN (hypertension) Qualifiers: Hypertension type: essential hypertension Qualified Code(s): I10 - Essential (primary) hypertension (3) HLD (hyperlipidemia) Qualifiers: Hyperlipidemia type: unspecified Qualified Code(s): E78.5 - Hyperlipidemia, unspecified
[2018-07-02] MEDS: Piperacillin/Tazobactam 3.375 GM in 0.9 % Sodium Chloride Mini Bag 100 ML IVPB SCH ×3 (00:24→18:32)
[2018-07-02] MEDS: OXYCODONE Oral CONC 10 MG/0.5 ML ORAL.SYG SL PRN ×2 (03:11→14:21)
[2018-07-02] MEDS: Cyanocobalamin (B-12) 1,000 MCG TABLET PO SCH (09:25)
[2018-07-02] MEDS: Aspirin Enteric Coated 81 MG Tablet PO SCH (09:25)
--- NOTE | 2018-07-02 10:09 | Podiatry Progress Note ---
Date of Encounter: 07/02/18 Time of Encounter: 09:30 - Assessment and Plan (1) Cellulitis of great toe of right foot Current Visit: Yes Status: Acute Assessment: S/P Day #1 I&D right hallux Erythema and edema noted to right hallux. Improving Sutures in tact to medial aspect of hallux. Small opening at proximal incision. CFT <3 seconds No pain with calf squeezes Diminshed pulses PT/DP right foot BC preliminary negative Wound cultures pending Plan: Surgical shoe ordered. Where when ambulating. Awaiting cultures. Changed dressing. Covered with adaptic, 4x4 dry gauze, and kerlex. OK for patient to advance diet if tolerating liquids. (2) Skin ulcer of right great toe Current Visit: Yes Status: Acute Assessment: Ulceration of right great toe to plantar aspect Plan: See above Qualifiers: Non-pressure ulcer stage: unspecified non-pressure ulcer stage Qualified Code(s): L97.519 - Non-pressure chronic ulcer of other part of right foot with unspecified severity (3) Smoker Current Visit: Yes Status: Acute Assessment: Plan: Encourage patient to stop smoking. May need to consider nicotine supplements- primary managing Subjective Interval history: Patient awake in bed. Reports she is ready to go home. Denies any fevers, chills, nausea, vomiting, or diarrhea. Denies any chest pain, shortness of breath, or calf pain. No other questions or concerns at this time. Objective - Vital Signs Vital Signs: Vital Signs Temp Pulse Resp BP Pulse Ox 07/02/18 07:11 98.1 F 59 18 102/67 96 07/02/18 02:53 97.8 F 71 16 116/76 96 07/02/18 00:08 98.1 F 78 16 99/63 98 07/01/18 21:50 98 07/01/18 19:44 98.7 F 62 16 124/76 97 07/01/18 17:55 97.6 F 61 14 121/82 98 07/01/18 17:45 97.1 F L 52 14 97/65 07/01/18 14:56 98.2 F 65 18 115/72 97 07/01/18 12:05 97.9 F 54 19 106/67 97 Intake and Output 07/01/18 07/02/18 07/02/18 23:59 07:59 15:59 Intake Total 350 / 350 100 / 100 Output Total 5 / 5 Balance 345 / 345 100 / 100 Intake: IV Fluids 350 / 350 100 / 100 Zosyn 3.375 GM In 0.9 % Sodium 100 / 100 100 / 100 Chloride (Mini-Bag +) 100 ML @ 25 mls/hr IVPB Q8HR [facility] Rx#: [id number] Vancocin 1,500 MG In 0.9 % 250 / 250 Sodium Chloride 250 ML @ 166. 667 mls/hr IVPB Q12H [facility] Rx#: [id number] Output: Estimated Blood Loss 5 / 5 Other: Weight 144.3 kg Patient Weight 07/02/18 23:59 Weight 144.3 kg - Exam Exam: Constitiutional: Alert and oriented x 3. Vascular: 2/4 DP/PT RLE, CFT <3 sec to all digits RLE, warm to warm from tibia to toes RLE, no calf pain with squeeze RLE Neurologic: Sensation to touch, normal plantar response, Normal position sense dorsiflexion/plantar flexion Dermatologic: Incision noted to medial aspect of right hallux. Opening at proximal incision. Erythema and edema noted to right hallux Musculoskeletal: 5/5 muscle strength and normal tone RLE. - Lab Result Diagrams: 06/30/18 06:35 07/02/18 09:39 Labs: Abnormal lab results WBC 14.1 K/mcL (4.3-11.1) H 06/30/18 06:35 ESR 64 mm/hr (0-15) H 06/30/18 19:41 PT 12.4 Seconds (9.4-12.1) H 06/30/18 06:35 Carbon Dioxide 20 mEq/L (23-29) L 06/30/18 06:35 Glucose 109 mg/dL (70-105) H 06/30/18 06:35 Hemoglobin A1c 5.9 % (-5.6) H 06/30/18 19:41 C-Reactive Protein 43 mg/L (Less than 10) H 06/30/18 19:41 - VTE Documentation of Mechanical Device: Graduated compression elastic hosiery Consult Discharge Plan - Plan Additional Instructions: Follow up with Dr. Moore in one week post d/c. Please make appointment prior to D/C. Referrals: Savanah Gutierrez, EMPLOYMENT CONSULTANT [Primary Care Provider] - 07/10/18 1:00 pm Emeka Moore DPM [Partnered Physician] -
[2018-07-02 10:41] LABS: BUN/Creatinine Ratio 15 (6-26); Blood Urea Nitrogen 10 mg/dL (6-20); eGFR For Non-African Americans > 60 (> 60)
--- NOTE | 2018-07-02 23:19 | Internal Med Progress Note ---
Hospitalist Progress Note - Encounter Date of Encounter: 07/02/18 Time of Encounter: 19:00 - Subjective Interval History: SUBJECTIVE: The patient underwent surgery yesterday. She got incision and drainage to fascia of right great toe. Cultures were obtained. Results are pending. She has only mild pain in the area of right foot. Denies chest pain and difficulty breathing. Denies coughing and wheezing. OBJECTIVE: Skin: Free of rash and discoloration. There is a surgical dressing applied to right foot. See notes from podiatry. ENMT: Oral/pharyngeal mucosa is normal in appearance. Eyes: Sclera is white. There is no discharge from eyes. Respiratory: Normal breath sounds; no crackles or wheezes. CV: Heart is regular; no gallop or murmur. GI: Abdomen is soft and not tender. There is no palpable mass or visceromegaly. Neuro: There is no focal deficits. ASSESSMENT AND PLAN: Cellulitis of great toe of her right foot. See notes from podiatry. The patient is on IV vancomycin/IV Zosyn. She got incision and drainage to the fascia of the right great toe today. Awaiting cultures from surgery. Hypertension. Under control. To continue lisinopril. Hyperlipidemia. To continue Lipitor. - Exam Vitals: Temp Pulse Resp BP Pulse Ox 98.1 F 72 18 120/79 95 07/02/18 20:59 07/02/18 20:59 07/02/18 20:59 07/02/18 20:59 07/02/18 20:59 Exam: xx - Assessment and Plan (1) Cellulitis of great toe of right foot Current Visit: Yes Status: Acute (2) HTN (hypertension) Current Visit: Yes Status: Chronic (3) HLD (hyperlipidemia) Current Visit: Yes Status: Acute - Time Spent with Patient Total time spent is greater than 50% in coordination of care (as documented) at patient's floor/unit and/or counseling patient: 25 - 35 minutes Plan of Care Discussed with: patient Internal Medicine: Result - Labs CBC & Chem 7: 06/30/18 06:35 07/02/18 09:39 Labs: BMP 07/02/18 09:39 BUN 10 Creatinine 0.66 - ABG Interpretation ABG results: PT/INR, D-dimer PT 12.4 Seconds (9.4-12.1) H 06/30/18 06:35 - VTE Documentation of Mechanical Device: Graduated compression elastic hosiery Consult Discharge Plan - Plan Additional Instructions: Follow up with Dr. Moore in one week post d/c. Please make appointment prior to D/C. Referrals: Savanah Gutierrez CNP [Primary Care Provider] - 07/10/18 1:00 pm Emeka Moore DPM [Partnered Physician] - __ (2) HTN (hypertension) Qualifiers: Hypertension type: essential hypertension Qualified Code(s): I10 - Essential (primary) hypertension (3) HLD (hyperlipidemia) Qualifiers: Hyperlipidemia type: unspecified Qualified Code(s): E78.5 - Hyperlipidemia, unspecified
[2018-07-03] MEDS: Piperacillin/Tazobactam 3.375 GM in 0.9 % Sodium Chloride Mini Bag 100 ML IVPB SCH ×2 (01:32→08:04)
[2018-07-03] MEDS: Aspirin Enteric Coated 81 MG Tablet PO SCH (08:04)
[2018-07-03] MEDS: Cyanocobalamin (B-12) 1,000 MCG TABLET PO SCH (08:04)
[2018-07-03 11:59] VITALS: BP 117/82
--- NOTE | 2018-07-03 13:13 | Podiatry Progress Note ---
Date of Encounter: 07/03/18 Time of Encounter: 11:45 - Assessment and Plan (1) Cellulitis of great toe of right foot Current Visit: Yes Status: Acute Assessment: S/P Day #1 I&D right hallux Erythema and edema noted to right hallux. Improving Sutures in tact to medial aspect of hallux. Small opening at proximal incision. CFT <3 seconds No pain with calf squeezes Diminshed pulses PT/DP right foot BC preliminary negative Wound cultures negative Plan: Ortho wedge ordered. Wear when ambulating. Changed dressing. Cleansed with 0.9 NS. Painted with betadine Covered with adaptic, 4x4 dry gauze, and kerlex. OK to D/C home with PO ATB. (2) Skin ulcer of right great toe Current Visit: Yes Status: Acute Assessment: Ulceration of right great toe to plantar aspect Plan: See above Qualifiers: Non-pressure ulcer stage: unspecified non-pressure ulcer stage Qualified Code(s): L97.519 - Non-pressure chronic ulcer of other part of right foot with unspecified severity (3) Smoker Current Visit: Yes Status: Acute Assessment: Plan: Encourage patient to stop smoking. May need to consider nicotine supplements- primary managing Subjective Interval history: Patient awake in bed. Reports she is ready to go home. Denies any fevers, chills, nausea, vomiting, or diarrhea. Denies any chest pain, shortness of breath, or calf pain. No other questions or concerns at this time. Objective - Vital Signs Vital Signs: Vital Signs Temp Pulse Resp BP Pulse Ox 07/03/18 12:08 98.3 F 50 16 117/82 97 07/03/18 11:58 98.3 F 50 14 117/82 95 07/03/18 07:11 97.8 F 66 14 112/77 96 07/03/18 04:29 97.9 F 67 18 106/72 96 07/03/18 00:34 97.7 F 66 18 103/66 95 07/02/18 20:59 98.1 F 72 18 120/79 95 07/02/18 19:06 98.1 F 64 16 118/69 95 07/02/18 16:02 97.8 F 70 18 119/81 96 Intake and Output 07/02/18 07/03/18 07/03/18 23:59 07:59 15:59 Intake Total 350 / 350 100 / 100 120 / 120 Balance 350 / 350 100 / 100 120 / 120 Intake: IV Fluids 350 / 350 100 / 100 Zosyn 3.375 GM In 0.9 % Sodium 100 / 100 100 / 100 Chloride (Mini-Bag +) 100 ML @ 25 mls/hr IVPB Q8HR [facility] Rx#: [id number] Vancocin 1,500 MG In 0.9 % 250 / 250 Sodium Chloride 250 ML @ 166. 667 mls/hr IVPB Q12H [facility] Rx#: [id number] Oral 120 / 120 Other: Meal Breakfast Percent of Meal Consumed 90% Weight 147 kg Patient Weight 07/03/18 23:59 Weight 147 kg - Exam Exam: Constitiutional: Alert and oriented x 3. Vascular: 2/4 DP/PT RLE, CFT <3 sec to all digits RLE, warm to warm from tibia to toes RLE, no calf pain with squeeze RLE Neurologic: Sensation to touch, normal plantar response, Normal position sense dorsiflexion/plantar flexion Dermatologic: Incision noted to medial aspect of right hallux. Opening at proximal incision. Erythema and edema noted to right hallux Musculoskeletal: 5/5 muscle strength and normal tone RLE. - Lab Result Diagrams: 06/30/18 06:35 07/02/18 09:39 Labs: Abnormal lab results WBC 14.1 K/mcL (4.3-11.1) H 06/30/18 06:35 ESR 64 mm/hr (0-15) H 06/30/18 19:41 PT 12.4 Seconds (9.4-12.1) H 06/30/18 06:35 Carbon Dioxide 20 mEq/L (23-29) L 06/30/18 06:35 Glucose 109 mg/dL (70-105) H 06/30/18 06:35 Hemoglobin A1c 5.9 % (-5.6) H 06/30/18 19:41 C-Reactive Protein 43 mg/L (Less than 10) H 06/30/18 19:41 Microbiology, Last 48 Hours 07/01/18 16:40 Wound Culture - Preliminary Right Foot No growth. - VTE Documentation of Mechanical Device: Graduated compression elastic hosiery Consult Discharge Plan - Plan Additional Instructions: Follow up with Dr. Moore in one week post d/c. Please make appointment prior to D/C. Referrals: Savanah Gutierrez CNP [Primary Care Provider] - 07/10/18 1:00 pm Emeka Moore DPM [Partnered Physician] -
--- NOTE | 2018-07-03 16:19 | Discharge Summary ---
Orders not resulted at time of discharge: Pending orders 06/29/18 19:36 Culture,Blood [BC] Stat 07/01/18 16:40 Culture,Anaerobic [RM] Routine Culture,Wound [RM] Routine Date of Encounter: 07/03/18 Time of Encounter: 16:12 - Discharge Diagnosis (1) Cellulitis of great toe of right foot Priority: Primary Status: Acute (2) HTN (hypertension) Priority: Secondary Status: Chronic Qualifiers: Hypertension type: essential hypertension Qualified Code(s): I10 - Essential (primary) hypertension (3) HLD (hyperlipidemia) Priority: Secondary Status: Chronic Qualifiers: Hyperlipidemia type: unspecified Qualified Code(s): E78.5 - Hyperlipidemia, unspecified Hospital course: Ms. Khan is a 42 year old female Discharge discussed with: patient, nurse - Time Spent with Patient Total time spent providing and/or coordinating discharge services: Greater than 30 minutes (40 minutes..) - Discharge Medications Prescriptions: Amoxicillin/Clavulanate [Augmentin] 875 mg PO BIDWM 10 Days #20 tablet Home Medications: Aspirin/Acetaminophen/Caffeine [Excedrin Migraine Caplet] 2 tab PO Q6H PRN 08/13/17 [History] Aspirin Enteric Coated [Aspirin EC] 81 mg PO DAILY #30 tablet. 08/15/17 [Rx] Atorvastatin [Lipitor] 10 mg PO HS #30 tablet 08/15/17 [Rx] Metoprolol [Lopressor] 25 mg PO BID #60 tablet 08/15/17 [Rx] Cyanocobalamin (Vitamin B-12) [Vitamin B12] 1,000 mcg PO DAILY 06/29/18 [History] Lisinopril [Zestril] 10 mg PO DAILY 06/29/18 [History] Amoxicillin/Clavulanate [Augmentin] 875 mg PO BIDWM 10 Days #20 tablet 07/03/18 [Rx] Allergies/Adverse Reactions: Allergy/AdvReac Type Severity Reaction Status Date / Time ibuprofen AdvReac Vomiting Verified 08/19/17 09:28 sumatriptan [From Imitrex] AdvReac Dizziness Verified 08/19/17 09:28 Date of admission: 06/29/18 20:50 Primary care physician: Savanah Gutierrez CNP Consults: 06/29/18 20:53 Consult to Podiatry [CONS] Routine Consulting Provider: Pod[facility] Reason for Consult: 42 year old woman wwith right great toe soft tissue swelling and progressive cellulitis requiring incision/drainage Call Completed: Yes Discharging clinician: Lloyd Sabillon Anticipated date of discharge: 07/03/18 - Constitutional Vitals: Temp Pulse Resp BP Pulse Ox 98.3 F 50 16 117/82 97 07/03/18 12:08 07/03/18 12:08 07/03/18 12:08 07/03/18 12:08 07/03/18 12:08 General appearance: Present: A&O X 3, morbidly obese, no acute distress, answers questions appropriately Exam: xx - Patient Status Disposition: Home, Self-Care Condition: Fair Overall status at discharge: patient is progressing back to baseline - Discharge Instructions Follow Up With: Savanah Gutierrez CNP [Primary Care Provider] - 07/10/18 1:00 pm Emeka Moore DPM [Partnered Physician] - Additional Instructions: Follow up with Dr. Moore in one week post d/c. Please make appointment prior to D/C. DRESSINGS -- PER PODIATRY.. - Diet and Activity Activity: increase activity as tolerated (to use a special boot for ambulation..) Diet: low fat, low cholesterol - VTE Reasons for not Prescribing Prophylaxis: Treatment not Indicated - Low risk for VTE Documentation of Mechanical Device: Graduated compression elastic hosiery Deep Vein Thrombosis/Pulmonary Embolism Present on Admission: No
== END 2018-07-03 17:01 | disposition home or self-care (01) | DRG 380 ==
LOC: 3BNU 15:49 → EMEROOARM 15:49 → SUATTDRO 20:50 → 3BNU 21:07 → 3NENU 07-02 19:54
PROVIDERS: ADMIT Internal Medicine; ATTEND Internal Medicine